=== PATIENT | female | born 1955 | race Caucasian/White ===

== ENCOUNTER 2020-05-10 11:21 | Inpatient (IN) ==
--- NOTE | 2020-04-20 11:15 | PAT Medication Instructions ---
Medication Instructions Date of Service April 20, 2020 Home Medications C,E,zinc,copper [id number] [Ocuvite Adult 50 Plus] 1 cap PO HS Vitamin D3 1 tab PO HS acetaminophen [Tylenol Arthritis Pain] 650 mg PO Q12H PRN albuterol sulfate 1 puff INHALATION QID PRN amlodipine 10 mg PO QAM atorvastatin [Lipitor] 20 mg PO HS cyclobenzaprine 10 mg PO TID PRN diphenhydramine HCl [Benadryl] 25 mg PO HS PRN epinephrine [EpiPen] 0.3 mg IM Q3H PRN hydrochlorothiazide 12.5 mg PO HS liraglutide [Victoza 2-Peter] 1.8 mg SUBCUT QAM lisinopril 40 mg PO QAM meloxicam 15 mg PO QAM metformin 500 mg PO BID morphine 15 mg PO BID multivitamin with minerals [Hair,Skin and Nails] 1 tab PO HS paroxetine HCl [Paxil] 20 mg PO QAM pregabalin [Lyrica] 50 mg PO BID Continue as directed epinephrine [EpiPen] 0.3 mg IM Q3H PRN (if needed) ASK your prescriber and surgeon meloxicam 15 mg PO QAM STOP taking 2 weeks before surgery (or as soon as possible if surgery is within 2 weeks) C,E,zinc,copper [id number] [Ocuvite Adult 50 Plus] 1 cap PO HS DO NOT take the morning of surgery cyclobenzaprine 10 mg PO TID PRN lisinopril 40 mg PO QAM metformin 500 mg PO BID Take morning of surgery With a small sip of water, OTHERWISE NOTHING TO EAT OR DRINK AFTER MIDNIGHT: acetaminophen [Tylenol Arthritis Pain] 650 mg PO Q12H PRN (okay to take up to 4 hours prior to surgery if needed) albuterol sulfate 1 puff INHALATION QID PRN (use if needed; please bring with you to hospital day of surgery if possible) amlodipine 10 mg PO QAM morphine 15 mg PO BID (okay to take up to 4 hours prior to surgery if needed) paroxetine HCl [Paxil] 20 mg PO QAM pregabalin [Lyrica] 50 mg PO BID Take evening before surgery Vitamin D3 1 tab PO HS acetaminophen [Tylenol Arthritis Pain] 650 mg PO Q12H PRN (if needed) albuterol sulfate 1 puff INHALATION QID PRN (if needed) atorvastatin [Lipitor] 20 mg PO HS cyclobenzaprine 10 mg PO TID PRN (if needed) diphenhydramine HCl [Benadryl] 25 mg PO HS PRN (if needed) hydrochlorothiazide 12.5 mg PO HS metformin 500 mg PO BID morphine 15 mg PO BID multivitamin with minerals [Hair,Skin and Nails] 1 tab PO HS pregabalin [Lyrica] 50 mg PO BID Other Notes If you have any questions please call us at [phone] or [phone] or [phone] or [phone]
--- NOTE | 2020-04-24 11:20 | Anesthesiology Consultation ---
Date of Service April 24, 2020 Assessment & Plan (1) Encounter for pre-operative examination: COVID Status: As of 04/24 assessment, patient denies travel to endemic area, known exposure/sick contacts, or symptoms of COVID19. Patient instructed that they and their household members must follow strict social distancing guidelines, wear a mask in public and avoid travel for 14 days prior to surgery. Preoperative COVID19 testing to be completed prior to surgery per surgeon's arrangements. Patient made aware to self-isolate as much as possible between COVID testing and surgery. Chart Review Chart Review: Acceptable Risk for Surgery (pending surgeon ordered PCP clearance 05/03) and Patient seen in Pre Admission Testing Teaching & Discussion Instructed NPO after midnight before surgery, except medications with 15 cc of water. Medication instructions provided according to the PAT guidelines. History Surgery Operation Date: 05/10/20 08:55 Proposed Procedures p Left Reverse Total Shoulder Arthroplasty - Tad Hernandez MD Height/Weight Height: 5 ft 3.5 in Weight: 107.8 kg Allergies Allergy/AdvReac Type Severity Reaction Status Date / Time bee venom protein (honey bee) Allergy Severe THROAT Verified 04/24/20 14:22 SWELLING,FACE SWELLS adhesive Allergy Unknown TRANSFER Verified 04/24/20 14:22 TAPE = TORE SKIN shark liver oil Allergy Unknown RASH Verified 04/24/20 14:22 Yeast Allergy Unknown RASH Verified 04/24/20 14:22 erythromycin base AdvReac Mild GI upset Verified 04/24/20 14:22 oxycodone AdvReac Mild lower Verified 04/24/20 14:22 blood pressure, feels weird Phenylmercuric Nitrate Allergy Unknown RASH Uncoded 04/24/20 14:22 Medications Home Medications Medication Instructions Recorded Confirmed Last Taken C,E,zinc,copper [id number] 1 cap PO HS 04/18/20 04/18/20 Unknown [Ocuvite Adult 50 Plus] Vitamin D3 1 tab PO HS 04/18/20 04/18/20 Unknown acetaminophen [Tylenol Arthritis 650 mg PO Q12H PRN 04/18/20 04/18/20 Unknown Pain] albuterol sulfate 1 puff INHALATION QID PRN 04/18/20 04/18/20 Unknown amlodipine 10 mg PO QAM 04/18/20 04/18/20 Unknown atorvastatin [Lipitor] 20 mg PO HS 04/18/20 04/18/20 Unknown cyclobenzaprine 10 mg PO TID PRN 04/18/20 04/18/20 Unknown diphenhydramine HCl [Benadryl] 25 mg PO HS PRN 04/18/20 04/18/20 Unknown epinephrine [EpiPen] 0.3 mg IM Q3H PRN 04/18/20 04/18/20 Unknown hydrochlorothiazide 12.5 mg PO HS 04/18/20 04/18/20 Unknown liraglutide [Victoza 2-Peter] 1.8 mg SUBCUT QAM 04/18/20 04/18/20 Unknown lisinopril 40 mg PO QAM 04/18/20 04/18/20 Unknown meloxicam 15 mg PO QAM 04/18/20 04/18/20 Unknown metformin 500 mg PO BID 04/18/20 04/18/20 Unknown morphine 15 mg PO BID 04/18/20 04/18/20 Unknown multivitamin with minerals 1 tab PO HS 04/18/20 04/18/20 Unknown [Hair,Skin and Nails] paroxetine HCl [Paxil] 20 mg PO QAM 04/18/20 04/18/20 Unknown pregabalin [Lyrica] 50 mg PO BID 04/18/20 04/18/20 Unknown Past Medical History Medical History Anxiety Asthma rarely uses PRN INH, ~ 2x per year at most Cardiac murmur Not noted on exam at PAT; pt reports has never had an echo. Cataracts, both eyes Degenerative disc disease Depression DM type 2 (diabetes mellitus, type 2) GERD (gastroesophageal reflux disease) Hyperlipidemia Hypertension Irregular heart beat "Skips a beat." NSR on EKG at PAT. Morbid obesity Osteoarthritis Exercise / Class Metabolic Activity II 4-5 Yardwork/Stairs/Walk up hill (Denies CP or SOB with 1 FOS, ges 'one at a time') Past Family History Family History Sister Diabetes Other No family history of adverse response to anesthesia Past Surgical History Surgical History History of appendectomy History of colonoscopy History of D&C History of left hip replacement History of left knee replacement History of lumbar spinal fusion History of removal of cyst BL breast; benign History of right hip replacement History of tooth extraction History of total abdominal hysterectomy and bilateral salpingo-oophorectomy Past Anesthesia History No Hx of Anesthesia Complications and No Family Hx of Anesthesia Complications History of PONV No Hx of PONV and No Hx of Motion Sickness Social History Smoking Status: Former smoker Do You Dip or Chew Tobacco: No Smoking End Date: quit at age 27 Hx Alcohol Use: No Hx Substance Use: No substance use type: does not use Review of Systems Pt denies any recent chest pain, shortness of breath, cough, fever, URI, or uncontrolled acid reflux. +rare palpitations Physical Exam Vital Signs BP: 135/74 P: 86bpm SPO2: 93% RA T: 98.3 F R: 16 Constitutional + obese ENMT Mouth: no dental restorations, no chipped teeth and no loose teeth Thyromental Distance: > or= 3.5 Finger Breadths (4) Mallampati Class: I Neck normal visual inspection; neck extension not limited Respiratory normal respiratory effort Auscultation: lungs clear to auscultation bilaterally Cardiovascular Rate/Rhythm: regular rate and regular rhythm Heart Sounds: no murmur Extremities: no edema Testing Laboratory Results 04/24/20 11:35 04/24/20 11:35 Hemoglobin A1c 7.1 % (4.5-5.6) H 04/24/20 11:35 Urine Color Yellow 04/24/20 11:35 Urine Appearance Clear (Clear) 04/24/20 11:35 Urine pH 5.0 (4.5-7.5) 04/24/20 11:35 Ur Specific [place] 1.028 (1.000-1.030) 04/24/20 11:35 Urine Protein Negative (Negative) 04/24/20 11:35 Urine Glucose (UA) Negative (Negative) 04/24/20 11:35 Urine Ketones Trace (Negative) H 04/24/20 11:35 Urine Nitrite Negative (Negative) 04/24/20 11:35 Ur Leukocyte Esterase 1+ (Negative) H 04/24/20 11:35 Urine WBC (Auto) 5-10 /hpf (0-5) H 04/24/20 11:35 Urine RBC (Auto) 5-10 /hpf (0-4) H 04/24/20 11:35 U Hyaline Cast (Auto) 1-5 /lpf (0-5) 04/24/20 11:35 U Epithel Cells (Auto) 10-20 /lpf (0-5) H 04/24/20 11:35 Urine Bacteria (Auto) Negative (Negative) 04/24/20 11:35 Blood Type O Negative 04/24/20 11:35 Antibody Screen NEGATIVE 04/24/20 11:35 Electrocardiogram Date: 04/24/20 Findings: + NSR @ (82bpm) Chest X-Ray Date: 04/24/20 Findings: + NAD
--- NOTE | 2020-04-24 12:25 | XRay Report ---
XR chest Pre-admission PA/Lat CLINICAL HISTORY: Preoperative chest COMPARISON STUDY: 05/16/2013 FINDINGS: The cardiac and mediastinal contours are normal. There is no evidence of focal pulmonary co nsolidation. There is no evidence of failure. No pleural effusions are visualized.[There are small ar eas of linear atelectasis/scarring within the right midlung zone and left lower lung zone. IMPRESSION: No active disease in the chest. ACT 112: Negative or not required by law. Electronically signed by: Tobias Henson M.D. 04/24/2020 12:24 PM
[2020-04-24 12:27] LABS: Basophils # (auto) 0.02 K/uL (0-0.2); Basophils % (auto) 0.2 %; Eosinophils # (auto) 0.21 K/uL (0-0.5); Eosinophils % (auto) 2.5 %; Hematocrit (blood only) 37.3 % (37-47); Hemoglobin 12.2 g/dL (12.0-16.0); Immature Granulocytes # (auto) 0.04 K/uL (0.00-0.02); Immature Granulocytes % (auto) 0.5 %; Lymphocytes # (auto) 2.31 K/uL (1.2-3.4); Lymphocytes % (auto) 27.9 %; Mean Corpuscular Hgb Conc 32.7 g/dL (32-36); Mean Corpuscular Volume 85.7 fL (80-100); Mean Platelet Volume 10.1 fL (7.4-10.4); Monocytes # (auto) 0.75 K/uL (0.11-0.59); Neutrophils # (auto) 4.96 K/uL (1.4-6.5); Neutrophils % (auto) 59.9 %; Platelet Count 373 K/uL (130-400); RDW Coefficient of Variation 13.3 % (11.5-14.5); RDW Standard Deviation 41.7 fL (36.4-46.3); Red Blood Count 4.35 M/uL (4.2-5.4); White Blood Count 8.29 K/uL (4.8-10.8)
[2020-04-24 12:29] LABS: Estimated Average Glucose 157 mg/dl; Hemoglobin A1C 7.1 % (4.5-5.6)
[2020-04-24 12:31] LABS: Appearance Urine Clear (Clear); Bacteria Urine Automated Negative (Negative); Bilirubin Urine Negative (Negative); Blood Urine Negative (Negative); Color Urine Yellow; Glucose Urine UA Negative (Negative); Ketones Urine Trace (Negative); Leukocyte Esterase Urine 1+ (Negative); Nitrite Urine Negative (Negative); Protein Urine Negative (Negative); Specific Gravity Urine 1.028 (1.000-1.030); Urobilinogen Urine Negative (Negative)
[2020-04-24 12:50] LABS: Albumin Level 3.2 gm/dl (3.4-5.0); BUN Creatinine Ratio 26.1 (10-20); Calcium 9.1 mg/dl (8.5-10.1); Creatinine Clr Calc Pharmacy 85.4 ml/min; Est GFR (African American) 92.5; Est GFR (Non-African American) 79.8; Potassium 4.3 mmol/L (3.5-5.1)
--- NOTE | 2020-04-26 08:37 | Electrocardiogram Report ---
Test Reason : Blood Pressure : / mmHG Vent. Rate : 082 BPM Atrial Rate : 082 BPM P-R Int : 164 ms QRS Dur : 082 ms QT Int : 360 ms P-R-T Axes : 064 064 068 degrees QTc Int : 420 ms Normal sinus rhythm Normal ECG When compared with ECG of 28-FEB-2015 16:24, No significant change was found Confirmed by Pacheco Reyez ([id number]) on 04/26/2020 8:37:17 AM Referred By: Tad Hernandez Confirmed By:Pacheco Reyez
--- NOTE | 2020-05-09 20:13 | History and Physical Report ---
DATE OF ADMISSION: 05/10/2020 CHIEF COMPLAINT: Chronic left shoulder pain and weakness. HISTORY OF PRESENT ILLNESS: This is a 65-year-old female patient of Dr. Hernandez'juliana complaining of chronic left shoulder pain and weakness, longstanding, now progressively getting worse. The patient failed conservative treatment and has elected to proceed with a left reversed total shoulder arthroplasty. MRI and x-rays have confirmed a rotator cuff insufficiency. PAST MEDICAL HISTORY: Heart murmur, hypertension, hypercholesterolemia, palpitations, asthma, diabetes mellitus, osteoarthritis, acid reflux, obesity. SOCIAL HISTORY: Nonsmoker, nondrinker. FAMILY HISTORY: Noncontributory. REVIEW OF SYSTEMS: Chronic left shoulder pain and weakness. Otherwise, denies any shortness of breath, chest pain, nausea, vomiting or any other joint complaints. PAST SURGICAL HISTORY: Appendectomy, hysterectomy, back surgery, bilateral hip surgery and knee surgery. MEDICATIONS: 1. Victoza 2-Peter subQ daily. 2. Cyclobenzaprine 10 mg twice daily. 3. Atorvastatin 20 mg daily. 4. Lisinopril 40 mg daily. 5. Amlodipine 10 mg daily. 6. Vitamin D3 25 mcg daily. 7. Paroxetine 20 mg daily. 8. Morphine extended release 15 mg tablets every 12 hours as needed. 9. Metformin 500 mg twice daily. 10. Meloxicam 15 mg daily. 11. Lyrica 50 mg twice daily. 12. Hydrochlorothiazide 12.5 mg daily. 13. Ocuvite Adult 50+ 250/5 mg 1 daily. 14. Hair, skin and nail tablets [id number] daily. 15. Tylenol Arthritis as needed. 16. Benadryl 25 mg as needed. ALLERGIES: ADHESIVE, BEE STINGS, OXYCODONE. PHYSICAL EXAMINATION: GENERAL: Well-developed, well-nourished 65-year-old female in no acute distress. She is alert and oriented x3 and pleasant. HEENT: Normocephalic, atraumatic. Extraocular motions are intact. Pupils are equal and reactive to light. HEART: Irregularly irregular rate and rhythm. LUNGS: Clear. ABDOMEN: Soft, nontender, bowel sounds present. EXTREMITIES: Left upper extremity; limited range of motion of 90 degrees of forward elevation actively, passively to 170 with pain and crepitation. She has 2/5 strength globally, specifically with rotator cuff strengthening. Positive impingement. Neurologically and neurovascularly, she is intact in her left upper extremity. DIAGNOSES: Left shoulder rotator cuff arthropathy, heart murmur, hypertension, hypercholesterolemia, palpitations, asthma, diabetes mellitus, osteoarthritis, acid reflux, obesity. PLAN: The patient was advised of her diagnosis. Indications, risks, benefits, postop course have all been reviewed. The patient wished to proceed with a left reverse total shoulder arthroplasty. Necessary consent forms, preoperative testing and clearances will be obtained.
[~2020-05-10 11:21] MED LIST: ACETAMINOPHEN 500 MG TAB PO SCH; CEFAZOLIN 2000MG 2,000 MG/15 ML SYR IV SCH; CeleBREX 200 MG CAP PO SCH; DEXAMETHASONE SOD INJ 4 MG/ML VIAL ONE; FAMOTIDINE 20 MG TAB PO SCH; GABAPENTIN 300 MG CAP PO SCH; GLYCOPYRROLATE 0.2 MG/ML VIAL ONE; LARYING-O-JET KIT (LTA) ONE; LIDOCAINE HCL 2% 2 ML VIAL/AMP(20MG/ML) INFIL ONE; LR 15ML/HR IV SCH; METOCLOPRAMIDE HCL 10 MG TABLET PO SCH; MIDAZOLAM HCL 1 MG/ML 2ML VIAL ONE; NEOSTIGMINE METHYLSULFATE 5 MG/5 ML SYR ONE; ONDANSETRON INJ 2 MG/ML 2 ML VIAL ONE; PHENYLEPHRINE 100MCG/ML 5ML SYR ONE; PROPOFOL IV EMULSION 10 MG/ML 20 ML VIAL IV ONE; ROCURONIUM BROMIDE 10 MG/ML 5 ML VIAL IV ONE; ROPIVACAINE 0.5% 5 MG/ML 30 ML VIAL ONE; ePHEDrine sulfate 50 MG/ML SYR ONE; fentaNYL citrate 100 MCG/2 ML VIAL ONE
[2020-05-10] MEDS ORDERED: BACITRACIN INJ 50,000 UNIT VIAL ONE (11:44)
[2020-05-10] MEDS ORDERED: HYDROmorphone INJ 2 MG/ML SYR/VIAL IV PRN (13:01)
[2020-05-10] MEDS ORDERED: METOCLOPRAMIDE HCL INJ 5 MG/ML 2 ML VIAL IV PRN (13:01)
[2020-05-10] MEDS ORDERED: fentaNYL citrate 100 MCG/2 ML VIAL IV PRN (13:01)
[2020-05-10] MEDS ORDERED: ONDANSETRON INJ 2 MG/ML 2 ML VIAL IV PRN ×2 (13:01→17:47)
[2020-05-10] MEDS ORDERED: ATROPINE SULFATE 0.1 MG/ML 10ML SYR IV PRN (13:01)
[2020-05-10] MEDS ORDERED: ePHEDrine sulfate 50 MG/ML AMP IV PRN (13:01)
[2020-05-10] MEDS ORDERED: PROMETHAZINE HCL 12.5 MG in SODIUM CHLORIDE 0.9% 50 ML IV PRN (13:01)
--- NOTE | 2020-05-10 13:27 | History & Physical Bridge Note ---
Date of Service May 10, 2020 History & Physical Bridge Note I have examined the patient, reviewed the History & Physical and in the interval since the performance of the History & Physical I have noted the following changes of clinical significance: no changes noted
[2020-05-10] MEDS ORDERED: LIDOCAINE HCL 2% MPF (LOCAL) 5 ML VIAL INFIL ONE (13:31)
[2020-05-10] MEDS ORDERED: LIDOCAINE HCL 2% 2 ML VIAL/AMP(20MG/ML) INFIL ONE (13:32)
[2020-05-10] MEDS ORDERED: PHENYLEPHRINE HCL 10 MG/ML VIAL ONE (14:20)
[2020-05-10] MEDS ORDERED: ROCURONIUM BROMIDE 10 MG/ML 5 ML VIAL IV ONE (15:42)
--- NOTE | 2020-05-10 16:24 | Operative Report ---
Post Operative Report Pre & Post Diagnosis Operation Date: 05/10/20 14:05 Pre-Op Diagnosis: Left Shoulder Rotator Cuff Arthropathy, end-stage glenohumeral osteoarthritis with bone loss glenoid, obesity BMI 40.8 Post-Op Diagnosis: Left Shoulder end-stage glenohumeral arthritis with bone loss glenoid, rotator cuff tendinopathy with intact rotator cuff, marked biceps tendinopathy, obesity BMI 40.8. I identified the patient and participated in the time-out.: Yes Procedure Operation Date: 05/10/20 14:05 Actual Procedures Left reversed total Shoulder Arthroplasty, Biceps Tenodesis(Left) - Tad Hernandez MD Surgeon Tad Hernandez MD Shirt Finisher Ernesto MORRIS Estimated Blood Loss 50 Findings Consistent with Post-Op Diagnosis Specimens Humeral head cut Drains 2 Hemovac Anesthesia Type General Regional Complications none Disposition Accompanied Patient To Recovery: No Disposition: Recovery Room Indications 65-year-old female with pain loss of motion decreased rotator cuff function left shoulder. Radiographs demonstrate severe osteoarthritis glenohumeral joint with superior bone loss glenoid back to the base of the coracoid concerning for chr onic rotator cuff disease with proximal migration and superior glenoid wear. Patient has very limited active use of her shoulder only 20 degrees of forward elevation and abduction but has good passive range of motion. Radiographs demonstrate also large inferior humeral osteophytes advanced arthritic changes throughout the glenohumeral joint. Description of Procedure The patient was taken to the operating room and anesthetized under regional block and general anesthetic. The patient was positioned on the operating table in a 30 beachchair position with a towel roll under the medial border of the left scapula. The arm was draped free to be able to manipulate the shoulder as needed. The left upper extremity was prepped and draped in usual sterile fashion. Exam demonstrated 160 degrees forward elevation 90 degrees of abduction 60 degrees external rotation with [id number] crepitation. She was obese in general an obese arm but in the area of the surgical field only moderate obesity. Was some generalized increased time with positioning due to her obesity.. An anterior deltopectoral approach was performed. A longitudinal incision was made in the deltopectoral interval. The skin was incised sharply. Subcutaneous flaps were elevated off the fascia. The cephalic vein was dissected out and retracted lateral with the deltoid. The clavipectoral fascia was divided at the lateral margin of the conjoined tendon and extended up to the CA ligament. The following findings were noted: The rotator cuff is intact with some thinning and tendinopathy of the superior cuff but no evidence of any full-thickness rotator cuff tear. The upper centimeter of the pectoralis was released for inferior exposure. The biceps tendon findings demonstrated significant biceps tenosynovitis with a large fluid collection and loose bodies in the biceps tendon sheath which appeared to be cartilaginous. Intra-articular biceps had marked fraying and tendinopathy.. the biceps tendon was tenodesed to the pectoralis tendon with #2 FiberWire. The proximal biceps was resected. The subscapularis tendon was taken down off the lesser tuberosity using a subperiosteal dissection. A #1 Vicryl traction suture was placed into the free end of the subscapularis tendon and capsule. The subscapular muscle fibers were split longitudinally at the level of the circumflex vessels. The circumflex vessels were identified and tied off with silk ties and divided laterally. A Kitner elevator was used to free up the inferior fibers of the subscapularis off of the capsule. The axillary nerve was identified with a tug test and protected with a blunt David retractor between the nerve and the capsule. The subscapularis tendon was then taken down off of the lesser tuberosity subperiosteally and subperiosteal dissection was performed along the neck of the humerus as the arm is gradually actually rotated exposing the humeral head. Humeral head had exposed bone on the upper half of the humerus and in. There there was very large inferior humeral osteophytes from anterior to posterior. Retractors were readjusted and the inferior osteophytes were all resected using an artist chisel. A Lilly elevator was used to assist in releasing the capsule of the neck of the humerus. The capsule was divided with Gomez scissors down to the glenoid released off the anterior glenoid and the rotator interval was released to meet the capsular release and a 360 release of the subscapularis was accomplished. A Fukuda retractor was placed into the joint retracting the humeral head posterior. Glenoid findings demonstrated exposed bone entire glenoid with superior anterior wear pattern down to the base of the coracoid flush with the coracoid base and superior to that position and slightly posterior to that in the superiormost portion there was erosion even medial to the base of the coracoid. There was inflamed chronic synovial tissue on the surface of the glenoid that almost appeared to be consistent with rheumatoid arthritis.. The inflamed synovium tissue, glenoid labrum and biceps tendon were resected. an anterior-inferior and posterior inferior capsular release were performed with electrocautery and a Lilly elevator on bone with the axillary nerve protected inferiorly by the retractor. Attention was then taken to the humeral preparation. The cutting guide was placed into the humeral head. It was positioned at 20 of retroversion. Oscillating saw was used to resect the humeral head giving the cut above the level of the posterior rotator cuff insertion site. The humerus was then prepared for the stem. I used the ascend flex stem from [employer]. The sizing broaches were used followed by trial broaches up to a size 3B long which had the appropriate fit and fill. The appropriate sized cut protector was placed. The humerus was then retracted posterior to the glenoid. The glenoid was sized for a 25 baseplate based on preoperative CT guide blueprint templating with custom guide fabrication.. The guide for the baseplate was positioned with the wedge of the full wedge component being aimed at the base of the coracoid anterior superior and the central drill guide wire was placed. This placed the baseplate prosthesis right at the bottom edge of the glenoid in position. The cannulated reamer for the 15 degree perform full wedge 25 mm baseplate was used. The reamer for the central boss was used. The depth gauge was used to measure for the central screw. The 25 mm full wedge 15 degree perform glenoid baseplate was screwed into position. The base plate was transfixed with superior compression screw and anterior posterior and inferior locking screws and with stable fixation.. After irrigation the 39 mm symmetrical glenoid sphere was impacted onto the baseplate and the screw was tightened. Attention was taken back to the humerus. The cut protector was removed and the +0 low offset humeral tray trial was assembled to the trial stem rotated appropriately to get bony coverage and then screwed in position. A trial reduction was performed. A +6,39 humeral trial insert demonstrated good stability and no shuck. The trials were removed. 3 drill holes are made into the harder bone in the bicipital groove area and 3 #5 FiberWire sutures were placed transosseously. The canal was irrigated with antibiotic solution with bacitracin. The final component was assembled. The final component was [employer] ascend flex PTC 3B long stem attached to +0 low offset humeral tray and a 39 mm +6 polyethylene reversed insert. This was then impacted into the humerus with a tight press-fit. It was reduced to the glenoid sphere. Stability was verified. Subscapularis was repaired with the #5 FiberWire sutures using Alok-Jose suture technique. Lateral row soft tissue repair was performed with #2 FiberWire [id number] sutures. The pectoralis was repaired with #2 FiberWire [id number] sutures reinforcing the biceps tendon tenodesis. The arm was taken through a range of motion which demonstrated 150 degrees forward elevation 130 degrees abduction X rotation to 45 degrees without any tension on subscap repair. The implant was stable through the range of motion tested. The wound was copiously irrigated. 2 Hemovac drains were placed. The deltopectoral interval was closed with [id number] #1 Vicryl sutures. The subcutaneous tissues were closed with 2-0 Vicryl sutures. The skin was closed with gonzalo. Sterile dressings were applied and a shoulder immobilizer. Ernesto MORRIS my physician resident assistant cna assisted in the procedure to the entire procedure including patient positioning arm positioning prepping and draping soft tissue retraction instrument management suture management and performed the subcutaneous and skin closure and will participate in the postoperative care of the patient. I attest to the content of the Intraoperative Record and any orders documented therein. Any exceptions are noted below.
--- NOTE | 2020-05-10 17:18 | XRay Report ---
XR shoulder LT min 2V routine CLINICAL HISTORY: Post shoulder surgery COMPARISON STUDY: None. FINDINGS: Status post reverse left total shoulder arthroplasty. The hardware is intact. No fracture o r dislocation. Skin gonzalo and surgical drains are in place. IMPRESSION: Status post reverse left total shoulder arthroplasty. No evidence for hardware complicat ion. ACT 112: Negative or not required by law. Electronically signed by: Daren Barrientos M.D. 05/10/2020 5:17 PM
--- NOTE | 2020-05-10 17:28 | Anesthesiology Progress Note ---
Date of Service May 10, 2020 Anesthesia Post Procedure Vital Signs Vital Signs: Temp Pulse Pulse Resp BP Pulse Ox 05/10/20 17:15 36.7 C 88 20 131/69 95 05/10/20 17:05 85 18 118/77 95 05/10/20 16:55 87 13 132/72 94 05/10/20 16:45 90 19 145/68 H 96 05/10/20 16:35 36.3 C L 95 H 18 152/76 H 94 05/10/20 11:52 36.7 C 94 H 20 143/83 H 95 Pain Intensity Left Shoulder: Pain Intensity: 0 Transfer of Care Handoff Completed per policy Notes Mental Status: alert / awake / arousable Patient Amnestic to Procedure: Yes Nausea / Vomiting: adequately controlled Pain: adequately controlled Airway Patency, RR, SpO2: stable & adequate BP & HR: stable & adequate Hydration State: stable & adequate Anesthetic Complications: no major complications apparent
[2020-05-10] MEDS ORDERED: MAGNESIUM HYDROXIDE SUSP 30 ML UDC PO PRN (17:47)
[2020-05-10] MEDS ORDERED: SODIUM CHLORIDE 0.9% 1000ML 1,000 ML IV SCH (17:47)
[2020-05-10] MEDS ORDERED: ALBUTEROL HFA 8 GM INHALER INH PRN (17:47)
[2020-05-10] MEDS ORDERED: bisacodyL 10 MG SUPP PR PRN (17:47)
[2020-05-10] MEDS ORDERED: NALOXONE HCL 0.4 MG/1 ML VIAL/CARP IV PRN (17:47)
[2020-05-10] MEDS ORDERED: PHARMACY GLYCEMIC MGMT CONSULT PRN (18:03)
--- NOTE | 2020-05-10 18:11 | Hospitalist Consultation ---
Date of Consultation May 10, 2020 Assessment & Plan (1) Status post replacement of left shoulder joint: - Pain management, bowel regimen and DVT ppx per the primary team - PT/OT consults, pt is planning on outpatient therapy - Follow am CBC to monitor for acute blood loss (2) Hypertension: - Cont amlodipine 10 mg qam, hctz 12.5 mg HS, lisinopril 40 mg daily (3) Hyperlipidemia: - Cont atorvastatin 20 mg HS (4) DM type 2 (diabetes mellitus, type 2): - ISS with accuchecks achs, metformin 500 mg BID, Victoza 1.8 mg subq - A1C = 7.1 on 04/24/20 (5) GERD (gastroesophageal reflux disease): - controlled, not on ppi/h2 dejuan (6) Morbid obesity: - chronic, bmi of 40.8, has lost 150 lbs in anticipation of this surgery and plans to lose more in the next few months. - heart health diet ordered, continue to encourage diet and weight loss (7) Anxiety: (8) Depression: - Cont paxil 20 mg qam (9) Asthma: - Chronic stable (10) DVT prophylaxis: -asa 81 mg BID CODE: FULL Dispo: From home, likely to remain in the hospital x 1-2 days Thank you for involving us in the care of Mrs. Gonzalez. Please do not hesitate to call with questions or concerns. At this time medicine service will sign off. Supervising Physician Co-Signing Physician Notes Attending Attestation: Pt seen/examined, chart reviewed, care plan d/w ARTURO Chavez. I agree w/ the padilla components of her documentation. 65yo female with HTN & T2DM - obesity with recent significant intentional weight loss - s/p left shoulder replacement today. Saw patient on ortho floor - resting comfortably. No cp,dyspnea,abd pain,or nausea. Eating fine. Pain - mild. PMH, PSH, allergies, meds, sochx, famhx - reviewed VSS gen - NAD; sitting in chair neck - no JVD heart - RRR, s1 s2 lungs - CTA b/l abd - soft NT ext - no ankle edema musculo - left shoulder dressings in place; sling in place A/P: 1. s/p left total shoulder replacement 2. HTN - cont home meds; BMP am to ensure stability of creatinine 3. T2DM - defer management to pharmacy; holding metformin 4. DVT proph - per ortho Shen eRnee MD History of Present Illness Reason for Consultation: Medical management Requesting Physician: Dr. Hernandez Attending Physician: Tad Hernandez MD History of Present Illness This is a 65 yo F with PMHx of HTN, HLD, DM II, GERD, morbid obesity, osteoarthritis, DDD, cataracts, asthma, anxiety, who presented for elective Left reverse shoulder arthroplasty by Dr. Hernandez on 05/10/2020. The pt reports doing well currently. She is eating dinner without difficulty. Her left arm is completely numb, but is able to move her fingers now. No flatus or urination s/p surgery. In preparation for surgery she lost 150 lbs in the past year, and did it through eating small portions and limiting carb intake. She is hopeful that she can lose a bit more, and then have skin surgically removed as it rubs and areas under her arms and pannis rub, which is irritating, and has to use creams to help prevent breakdown. Pt lives at home with her who will be able to help her with PT/OT as an outpatient. She speaks highly of her during our meeting and ensure me that he has taken very good care of her, for the past 44 years. Allergies Allergy/AdvReac Type Severity Reaction Status Date / Time bee venom protein (honey bee) Allergy Severe THROAT Verified 05/10/20 11:41 SWELLING,FACE SWELLS adhesive Allergy Unknown TRANSFER Verified 05/10/20 11:41 TAPE = TORE SKIN shark liver oil Allergy Unknown RASH Verified 05/10/20 11:41 Yeast Allergy Unknown RASH Verified 05/10/20 11:41 erythromycin base AdvReac Mild GI upset Verified 05/10/20 11:41 oxycodone AdvReac Mild lower Verified 05/10/20 11:41 blood pressure, feels weird Phenylmercuric Nitrate Allergy Unknown RASH Uncoded 05/10/20 11:41 Home Medications Home Medications Medication Instructions Recorded Confirmed Type C,E,zinc,copper [id number] 1 cap PO HS 04/18/20 05/10/20 History [Ocuvite Adult 50 Plus] Vitamin D3 1 tab PO HS 04/18/20 05/10/20 History acetaminophen [Tylenol Arthritis 650 mg PO Q12H PRN 04/18/20 05/10/20 History Pain] albuterol sulfate 1 puff INHALATION QID PRN 04/18/20 05/10/20 History amlodipine 10 mg PO QAM 04/18/20 05/10/20 History atorvastatin [Lipitor] 20 mg PO HS 04/18/20 05/10/20 History cyclobenzaprine 10 mg PO TID PRN 04/18/20 05/10/20 History diphenhydramine HCl [Benadryl] 25 mg PO HS PRN 04/18/20 05/10/20 History epinephrine [EpiPen] 0.3 mg IM Q3H PRN 04/18/20 05/10/20 History hydrochlorothiazide 12.5 mg PO HS 04/18/20 05/10/20 History liraglutide [Victoza 2-Peter] 1.8 mg SUBCUT QAM 04/18/20 05/10/20 History lisinopril 40 mg PO QAM 04/18/20 05/10/20 History meloxicam 15 mg PO QAM 04/18/20 05/10/20 History metformin 500 mg PO BID 04/18/20 05/10/20 History morphine 15 mg PO BID 04/18/20 05/10/20 History multivitamin with minerals 1 tab PO HS 04/18/20 05/10/20 History [Hair,Skin and Nails] paroxetine HCl [Paxil] 20 mg PO QAM 04/18/20 05/10/20 History pregabalin [Lyrica] 50 mg PO BID 04/18/20 05/10/20 History Patient History Medical History (Updated 05/10/20 @ 18:08 by Che Chavez PA-C) Anxiety Asthma rarely uses PRN INH, ~ 2x per year at most Cardiac murmur Not noted on exam at PAT; pt reports has never had an echo. Cataracts, both eyes Degenerative disc disease Depression DM type 2 (diabetes mellitus, type 2) GERD (gastroesophageal reflux disease) Hyperlipidemia Hypertension Irregular heart beat "Skips a beat." NSR on EKG at PAT. Morbid obesity Osteoarthritis Surgical History (Updated 05/10/20 @ 18:09 by Che Chavez PA-C) History of appendectomy History of colonoscopy History of D&C History of left hip replacement History of left knee replacement History of lumbar spinal fusion History of removal of cyst BL breast; benign History of right hip replacement History of tooth extraction History of total abdominal hysterectomy and bilateral salpingo-oophorectomy Family History Sister Diabetes Other No family history of adverse response to anesthesia Social History (System 04/24/20 @ 14:22 by Giovana Alcazar) Smoking End Date: quit at age 27; Do You Dip or Chew Tobacco: No; Tobacco Cessation Education Requested by Patient: No 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 Safety Concerns: Feels Safe At This Time Review of Systems Review of Systems: Constitutional: No fever, sweats or chills Eyes: No diplopia, no worsening or blurred vision ENT: normal hearing, no trouble swallowing Respiratory: No cough, sputum, dyspnea at rest or on exertion Cardiovascular: No chest pain, tightness or palpitations Abdomen: No pain, nausea, vomiting, diarrhea or constipation Musculoskeletal: No joint pain, calf pain, swelling Neurologic: No weakness, numbness/tingling, or balance problems Psychiatric: No anxiety or depression Skin: No rash or itch Physical Exam Physical Exam: General: awake, alert, no apparent distress, obese with BMI of 40.1 Head: Normocephalic, atraumatic ENT: PERRL, EOMI, no pharyngeal exudate, mucous membranes moist Chest: Clear to auscultation, on room air, no adventitious breath sounds Cardiac: Regular rate and rhythm, no murmur, no JVD, normal peripheral pulses, good capillary refill Abdominal: NABS x 4 quadrants, soft, nontender to palpation, no rebound, guarding or tenderness Extremities: + Left shoulder in sling, hemovac, icepack, otherwise normal inspection, no peripheral edema or erythema, calfs nontender to palpation Psych: Normal mood and affect Neuro: AAO x 3, strength intact bilaterally and related 5/5, no motor deficits, speech is clear, no peripheral sensory deficits Results & Data Results & Data ([facility]) Vital Signs (Past 12 Hours) Vital Signs Temp Pulse Pulse Resp BP Pulse Ox 05/10/20 17:15 36.7 C 88 20 131/69 95 05/10/20 17:05 85 18 118/77 95 05/10/20 16:55 87 13 132/72 94 05/10/20 16:45 90 19 145/68 H 96 05/10/20 16:35 36.3 C L 95 H 18 152/76 H 94 05/10/20 11:52 36.7 C 94 H 20 143/83 H 95 PG Care Time/CCT Total # of Minutes Spent Total Time Spent with Patient: Total time spent is greater than 50% in coordination of care (as documented) at patient's floor/unit and/or counseling patient: Coding Level of Care Code 42324 Inpt Consult Level 3 Diagnoses Status post replacement of left shoulder joint Z96.612 Hypertension I10 Hyperlipidemia E78.5 DM type 2 (diabetes mellitus, type 2) E11.9 GERD (gastroesophageal reflux disease) K21.9 Morbid obesity E66.01 Anxiety F41.9 Depression F32.9 Asthma J45.909 DVT prophylaxis Z29.9
[2020-05-10] MEDS ORDERED: GLUCOSE 40% GEL 15 GM TUBE PO PRN (18:30)
[2020-05-10] MEDS ORDERED: NovoLIN-N (NPH) PER UNIT CHARGE SQ ONE (18:30)
[2020-05-10] MEDS ORDERED: DEXTROSE 50% 50 ML SYRINGE IV PRN (18:30)
[2020-05-10] MEDS ORDERED: GLUCOSE 10 TABS/TUBE PO PRN (18:30)
[2020-05-10] MEDS ORDERED: GLUCAGON FOR INJ 1 MG VIAL SQ PRN (18:30)
[2020-05-10] MEDS ORDERED: CARBOHYDRATES FOR HYPOGLYCEMIA PO PRN (18:30)
[2020-05-10] MEDS: INSULIN ASPART 100 UNITS/ML 3 ML PEN SC SCH ×2 (18:50→21:02)
[2020-05-10] MEDS: ASPIRIN 81 MG ECTAB PO SCH (20:54)
[2020-05-10] MEDS: SENNA 8.6 MG TAB PO SCH (20:54)
[2020-05-10] MEDS: DOCUSATE SODIUM 100 MG CAP PO SCH (20:54)
[2020-05-10] MEDS: hydroCHLOROthiazide 25 MG TAB PO SCH (20:54)
[2020-05-10] MEDS: ATORVASTATIN 20 MG TAB PO SCH (20:55)
[2020-05-10] MEDS: MoRPHine SULFATE CR 15 MG TABCR PO SCH (20:58)
[2020-05-10] MEDS: PREGABALIN 50 MG CAP PO SCH (20:58)
[2020-05-10] MEDS ORDERED: METFORMIN HCL 500 MG TAB PO SCH (21:00)
[2020-05-10] MEDS: CEFAZOLIN 2000MG 2,000 MG/15 ML SYR IV SCH (22:04)
[2020-05-11] MEDS: INSULIN ASPART 100 UNITS/ML 3 ML PEN SC SCH ×6 (00:33→20:53)
[2020-05-11] MEDS: HYDROCODONE/ACETAMOPHEN 5/325MG TAB PO PRN ×5 (01:45→23:17)
[2020-05-11] MEDS: CEFAZOLIN 2000MG 2,000 MG/15 ML SYR IV SCH (05:42)
[2020-05-11 06:04] LABS: Eosinophils # (auto) 0.01 K/uL (0-0.5); Eosinophils % (auto) 0.1 %; Hematocrit (blood only) 34.8 % (37-47); Hemoglobin 11.5 g/dL (12.0-16.0); Immature Granulocytes # (auto) 0.05 K/uL (0.00-0.02); Immature Granulocytes % (auto) 0.5 %; Lymphocytes # (auto) 1.38 K/uL (1.2-3.4); Lymphocytes % (auto) 12.9 %; Mean Corpuscular Volume 84.9 fL (80-100); Mean Platelet Volume 9.7 fL (7.4-10.4); Monocytes # (auto) 1.05 K/uL (0.11-0.59); Monocytes % (auto) 9.8 %; Neutrophils # (auto) 8.18 K/uL (1.4-6.5); Neutrophils % (auto) 76.7 %; Platelet Count 320 K/uL (130-400); RDW Coefficient of Variation 13.4 % (11.5-14.5); RDW Standard Deviation 40.8 fL (36.4-46.3); White Blood Count 10.67 K/uL (4.8-10.8)
[2020-05-11 06:36] LABS: BUN Creatinine Ratio 25.5 (10-20); Calcium 9.2 mg/dl (8.5-10.1); Creatinine Clr Calc Pharmacy 79.5 ml/min; Est GFR (African American) 85.8; Potassium 4.3 mmol/L (3.5-5.1)
--- NOTE | 2020-05-11 07:37 | Anesthesiology Progress Note ---
Date of Service May 11, 2020 Anesthesia Post Procedure Vital Signs Vital Signs: Temp Pulse Pulse Resp BP Pulse Ox 05/11/20 03:57 36.7 C 80 20 123/71 92 05/10/20 22:49 36.4 C L 89 16 143/83 H 93 05/10/20 20:52 36.8 C 89 18 123/74 93 05/10/20 19:38 36.8 C 90 18 133/79 89 L 05/10/20 18:17 36.6 C 90 22 143/80 H 92 05/10/20 17:47 36.7 C 89 20 129/74 94 05/10/20 17:15 36.7 C 88 20 131/69 95 05/10/20 17:05 85 18 118/77 95 05/10/20 16:55 87 13 132/72 94 05/10/20 16:45 90 19 145/68 H 96 05/10/20 16:35 36.3 C L 95 H 18 152/76 H 94 05/10/20 11:52 36.7 C 94 H 20 143/83 H 95 Pain Intensity Left Shoulder: Pain Intensity: 0 Notes Mental Status: alert / awake / arousable and participated in evaluation Patient Amnestic to Procedure: Yes Nausea / Vomiting: adequately controlled Pain: adequately controlled Airway Patency, RR, SpO2: stable & adequate BP & HR: stable & adequate Hydration State: stable & adequate Anesthetic Complications: no major complications apparent and Pt Satisfied with anesthetic care
[2020-05-11] MEDS ORDERED: NovoLIN-N (NPH) PER UNIT CHARGE SQ ONE (09:00)
[2020-05-11] MEDS ORDERED: NON-FORMULARY MEDICATION (Liraglutide [Victoza 2-Pak] 1.8 MG) SQ SCH (09:00)
[2020-05-11] MEDS: DOCUSATE SODIUM 100 MG CAP PO SCH ×2 (09:02→20:53)
[2020-05-11] MEDS: ASPIRIN 81 MG ECTAB PO SCH ×2 (09:02→20:53)
[2020-05-11] MEDS: PREGABALIN 50 MG CAP PO SCH ×2 (09:02→20:53)
[2020-05-11] MEDS: AMLODIPINE BESYLATE 5 MG TAB PO SCH (09:02)
[2020-05-11] MEDS: MoRPHine SULFATE CR 15 MG TABCR PO SCH ×2 (09:02→20:53)
[2020-05-11] MEDS: PARoxetine HCL 20 MG TAB PO SCH (09:03)
[2020-05-11] MEDS: lisinopriL 40 MG TAB PO SCH (09:03)
[2020-05-11] MEDS: MULTIVITAMIN TAB PO SCH (09:03)
--- NOTE | 2020-05-11 09:06 | Orthopedic Progress Note ---
Date of Service May 11, 2020 Assessment & Plan (1) Status post replacement of left shoulder joint: Postop day 1 status post left reverse TSA PT/OT protocols. DVT prophylaxis with ASA p.o. twice daily, SCDs Pain management-patient currently on MS Contin 15 mg p.o. twice daily at home. Hydrocodone for breakthrough pain. Admission and Anticipated Discharge Date Admission Date: May 10, 2020 Subjective Postop day 1 Patient currently sitting up in her chair at the bedside. She states that her block is wearing off and that she is getting a little bit of pain in the shoulder at this time. No other complaints this morning. Denies shortness of breath, chest pain, lightheadedness. Physical Exam Physical Exam: Dressings are clean, dry, and intact. Hemovac is functioning. She is able to move all of her fingers this morning. Good range of motion of her wrist. Capillary refill less than [address] Results & Data ([facility]) Vital Signs (Past 12 Hours) Vital Signs Temp Pulse Resp BP Pulse Ox 05/11/20 07:54 36.5 C 88 18 175/94 H 94 05/11/20 03:57 36.7 C 80 20 123/71 92 05/10/20 22:49 36.4 C L 89 16 143/83 H 93 Laboratory Results Laboratory Results WBC 10.67 K/uL (4.8-10.8) 05/11/20 05:40 RBC 4.10 M/uL (4.2-5.4) L 05/11/20 05:40 Hgb 11.5 g/dL (12.0-16.0) L 05/11/20 05:40 Hct 34.8 % (37-47) L 05/11/20 05:40 MCV 84.9 fL (80-100) 05/11/20 05:40 MCH 28.0 pg (25-34) 05/11/20 05:40 MCHC 33.0 g/dL (32-36) 05/11/20 05:40 RDW Std Deviation 40.8 fL (36.4-46.3) 05/11/20 05:40 RDW Coeff of German 13.4 % (11.5-14.5) 05/11/20 05:40 Plt Count 320 K/uL (130-400) 05/11/20 05:40 MPV 9.7 fL (7.4-10.4) 05/11/20 05:40 Immature Gran % (Auto) 0.5 % 05/11/20 05:40 Neut % (Auto) 76.7 % 05/11/20 05:40 Lymph % (Auto) 12.9 % 05/11/20 05:40 [place] % (Auto) 9.8 % 05/11/20 05:40 Eos % (Auto) 0.1 % 05/11/20 05:40 Baso % (Auto) 0.0 % 05/11/20 05:40 Neut # (Auto) 8.18 K/uL (1.4-6.5) H 05/11/20 05:40 Lymph # (Auto) 1.38 K/uL (1.2-3.4) 05/11/20 05:40 [place] # (Auto) 1.05 K/uL (0.11-0.59) H 05/11/20 05:40 Eos # (Auto) 0.01 K/uL (0-0.5) 05/11/20 05:40 Baso # (Auto) 0.00 K/uL (0-0.2) 05/11/20 05:40 Immature Gran # (Auto) 0.05 K/uL (0.00-0.02) H 05/11/20 05:40 Sodium 135 mmol/L (136-145) L 05/11/20 05:40 Potassium 4.3 mmol/L (3.5-5.1) 05/11/20 05:40 Chloride 102 mmol/L (98-107) 05/11/20 05:40 Carbon Dioxide 29 mmol/L (21-32) 05/11/20 05:40 Anion Gap 4.0 (3-11) 05/11/20 05:40 BUN 21 mg/dl (7-18) H 05/11/20 05:40 Creatinine 0.83 mg/dl (0.6-1.2) 05/11/20 05:40 Est Cr Clr Drug Dosing 79.5 ml/min 05/11/20 05:40 Est GFR ( Amer) 85.8 05/11/20 05:40 Est GFR (Non-Af Amer) 74.0 05/11/20 05:40 BUN/Creatinine Ratio 25.5 (10-20) H 05/11/20 05:40 Glucose 110 mg/dl (70-99) H 05/11/20 05:40 POC Glucose 128 mg/dl (70-99) H 05/11/20 07:59 Estimat Average Glucose 157 mg/dl 04/24/20 11:35 Hemoglobin A1c 7.1 % (4.5-5.6) H 04/24/20 11:35 Calcium 9.2 mg/dl (8.5-10.1) 05/11/20 05:40 Albumin 3.2 gm/dl (3.4-5.0) L 04/24/20 11:35 Urine Color Yellow 04/24/20 11:35 Urine Appearance Clear (Clear) 04/24/20 11:35 Urine pH 5.0 (4.5-7.5) 04/24/20 11:35 Ur Specific [place] 1.028 (1.000-1.030) 04/24/20 11:35 Urine Protein Negative (Negative) 04/24/20 11:35 Urine Glucose (UA) Negative (Negative) 04/24/20 11:35 Urine Ketones Trace (Negative) H 04/24/20 11:35 Urine Blood Negative (Negative) 04/24/20 11:35 Urine Nitrite Negative (Negative) 04/24/20 11:35 Urine Bilirubin Negative (Negative) 04/24/20 11:35 Urine Urobilinogen Negative (Negative) 04/24/20 11:35 Ur Leukocyte Esterase 1+ (Negative) H 04/24/20 11:35 Urine WBC (Auto) 5-10 /hpf (0-5) H 04/24/20 11:35 Urine RBC (Auto) 5-10 /hpf (0-4) H 04/24/20 11:35 U Hyaline Cast (Auto) 1-5 /lpf (0-5) 04/24/20 11:35 U Epithel Cells (Auto) 10-20 /lpf (0-5) H 04/24/20 11:35 Urine Bacteria (Auto) Negative (Negative) 04/24/20 11:35 Blood Type O Negative 04/24/20 11:35 Antibody Screen NEGATIVE 04/24/20 11:35
[2020-05-11] MEDS: HYDROmorphone INJ 0.5 MG/0.5 ML SYR IV PRN ×2 (11:46→22:37)
--- NOTE | 2020-05-11 13:37 | Pharmacy Report ---
Glycemic Control Consultation - Date of Service May 11, 2020 - Scope Scope: Glycemic Pharmacist consulted for glycemic control and to write orders per [facility] inpatient glycemic control protocol. - Objective Weight: 106.1 kg Accuchecks BSG (last 24hrs): 05/10/20 05/10/20 05/10/20 16:44 17:50 20:49 Glucose POC Glucose 143 H 171 H 218 H 05/11/20 05/11/20 05/11/20 00:20 03:52 05:40 Glucose 110 H POC Glucose 136 H 120 H 05/11/20 05/11/20 07:59 12:07 Glucose POC Glucose 128 H 109 H Laboratory Data (last 24hrs): 05/11/20 05:40 Potassium 4.3 Carbon Dioxide 29 Anion Gap 4.0 Creatinine 0.83 Est Cr Clr Drug Dosing 79.5 HbA1c: Hemoglobin A1c 7.1 % (4.5-5.6) H 04/24/20 11:35 - Recent Pertinent Medications Outpatient Anti-diabetic Regimen: * metformin * liraglutide 1.8 mg SQ * A1c = 7.1 % 04/24/20 The patient is currently receiving: * Basal insulin: NPH 30 units SQ x 1 * Correctional Insulin: Novolog Correction per scale ACHS Goal Range: Low 110 mg/dL - High 140 mg/dL Correction Factor: 20 mg/dL/unit * Prandial insulin: Per carb ratio of 1 unit per 7 grams CHO consumed Risk Factors for Insulin Resistance: * Steroids: dexamethasone 8 mg IV x 1 intraop * Recent Surgery: POD 1 for L shoulder * Diet: T2DM - Assessment & Plan Assessment & Plan: ASSESSMENT: * Ms Gonzalez is a 65 y/o F with a PMH of T2DM on one oral and one injectable agent who presents for shoulder surgery. Patient received IV dexamethasone in the OR (8 mg). Pharmacist last night gave 30 units of NPH to cover. * BSGs yesterday were 155-171-218 mg/dL. Overnight BSGs were 136-120 mg/dL and today have been 128-109 mg/dL. * NPH 15 units given this morning to cover any remaining steroid effects. Novolog loosened with lunch. * Plan to restart metformin tomorrow as renal function and diet are excellent. * ADA & AACE recommend a goal blood sugar range 140-180 mg/dl for the majority of critically ill & non-critically ill patients. However, more stringent targets may be selected in individual cases. Will utilize more stringent goal of 110-140mg/dl based on patient age & comorbidities. Additionally, tighter glycemic control is warranted to facilitate wound healing. PLAN FOR INPATIENT GLYCEMIC CONTROL: * Holding outpatient oral diabetes medications * Basal insulin * NPH 15 units SQ x 1 * Bolus insulin * NovoLog per scale ACHS or Q6hrs while NPO * Goal Range: Low 110 mg/dL - High 140 mg/dL * Correction Factor: 20 mg/dL/unit * Nutritional / Prandial insulin per carb ratio of 1 unit per 7 grams CHO consumed Recommendations for Discharge * Patient's HbA1C is reasonably controlled for her age. * Current HbA1C is 7.1% with goal of 7% * Recommend titrating upwards on metformin Thank you.
[2020-05-11] MEDS ORDERED: NURSING DECISION MEDICATION ONE (15:56)
[2020-05-11] MEDS ORDERED: COUGH DROP (SUGAR FREE) LOZ 24 LOZ/1 BOX BUCCAL PRN (16:06)
[2020-05-11] MEDS: hydroCHLOROthiazide 25 MG TAB PO SCH (20:52)
[2020-05-11] MEDS: SENNA 8.6 MG TAB PO SCH (20:52)
[2020-05-11] MEDS: ATORVASTATIN 20 MG TAB PO SCH (20:53)
[2020-05-12] MEDS: HYDROCODONE/ACETAMOPHEN 5/325MG TAB PO PRN ×2 (05:37→12:07)
[2020-05-12] MEDS: DOCUSATE SODIUM 100 MG CAP PO SCH (07:29)
[2020-05-12] MEDS: ASPIRIN 81 MG ECTAB PO SCH (07:29)
[2020-05-12] MEDS: AMLODIPINE BESYLATE 5 MG TAB PO SCH (07:29)
[2020-05-12] MEDS: PARoxetine HCL 20 MG TAB PO SCH (07:29)
[2020-05-12] MEDS: MULTIVITAMIN TAB PO SCH (07:29)
[2020-05-12] MEDS: lisinopriL 40 MG TAB PO SCH (07:29)
[2020-05-12] MEDS: INSULIN ASPART 100 UNITS/ML 3 ML PEN SC SCH ×2 (07:31→12:38)
[2020-05-12] MEDS: PREGABALIN 50 MG CAP PO SCH (07:36)
[2020-05-12] MEDS: MoRPHine SULFATE CR 15 MG TABCR PO SCH (09:08)
--- NOTE | 2020-05-12 09:09 | Orthopedic Progress Note ---
Date of Service May 12, 2020 Assessment & Plan (1) Status post replacement of left shoulder joint: Postop day 2 status post left reverse TSA PT/OT protocols. DVT prophylaxis with ASA p.o. twice daily, SCDs Pain management-patient currently on MS Contin 15 mg p.o. twice daily at home. Hydrocodone for breakthrough pain. Plan for D/C home today. Admission and Anticipated Discharge Date Admission Date: May 10, 2020 Subjective Postop day 2 Patient currently sitting up in her chair at the bedside. Pain is much more controlled this AM than it was last night. No other complaints this morning. Denies shortness of breath, chest pain, lightheadedness. Physical Exam Constitutional: WD/WN, vitals as above Musculoskeletal: Shoulder: + surgical incision (Left shoulder dressing C/D/I); shoulder normal to inspection, no deformity, no skin erythema, no ecchymosis and no crepitation with shoulder ROM Skin: no rashes, warm and dry Neurologic: normal touch/pain/proprioception (left hand motion is normal. Sensation normal and intact.) Psychiatric: A+Ox3, euthymic affect Speech: normal rate/rhythm/volume of speech Results & Data ([facility]) Vital Signs (Past 12 Hours) Vital Signs Temp Pulse Pulse Resp BP Pulse Ox 05/12/20 06:43 36.8 C 88 16 143/78 H 94 05/11/20 23:23 36.7 C 82 18 143/84 H 97
--- NOTE | 2020-05-18 10:09 | Discharge Summary (DS) ---
DISCHARGE DIAGNOSIS: Degenerative joint disease, left shoulder with rotator cuff arthropathy. SECONDARY DIAGNOSES: History of hypertension, hypercholesterolemia, palpitations, asthma, diabetes mellitus, gastroesophageal reflux disease, obesity. CONSULTS: Lili Chavez PA-C/Dr. Renee. COMPLICATIONS: None. PROCEDURE: Left reverse total shoulder arthroplasty with biceps tenodesis by Dr. Hernandez on 05/10/2020. BRIEF HISTORY: As dictated in the history and physical. HOSPITAL SUMMARY: The patient was admitted on the above-noted date and had the above-noted surgery performed, which she tolerated well. [facility] hospitalist service was consulted for medical management during her stay and they continued to follow patient while admitted. On her first postoperative day, she was sitting in her chair at the bedside and said that her block was wearing off and she was having some mild pain in the shoulder at that time, she had no other complaints. Denied shortness of breath, chest pain or lightheadedness. Dressings clean, dry and intact. Hemovac was functioning. She was moving all of her fingers of the operative side and had good range of motion of her wrist. Sling was in place. Vital signs were stable and she was afebrile. Hemoglobin was 11.5. She was started on PT and OT protocols, continued on DVT prophylaxis and pain management. By her second postoperative day, she continued to remain stable. She had good pain control. Dressings were clean, dry and intact. Neurovascular was intact. Her hand motion was within normal limits. Sensation was intact. Vital signs were stable and it was felt she could be discharged to home. For further review, please see chart. LABORATORY AND X-RAY DATA: As per chart. DISCHARGE INSTRUCTIONS: The patient was discharged home in satisfactory condition on 05/12/2020. DIET: Regular. ACTIVITY: Nonweightbearing on the affected extremity. Follow reverse total shoulder arthroplasty instructions as written as well as special care instructions. Follow up with Dr. Hernandez in 2 weeks. The patient to call for appointment if one has not been made for you. DISCHARGE MEDICATIONS: Aspirin 81 mg p.o. b.i.d., [place] 1-2 tabs p.o. q. 6 hours p.r.n. Resume home meds as listed.
== END 2020-05-12 13:10 | disposition home or self-care (01) | DRG 483 ==
LOC: ASU 11:21 → 3E 16:46

== ENCOUNTER 2023-06-03 08:26 | Observation (INO) ==
--- NOTE | 2023-05-29 14:19 | History & Physical Report ---
Date of Service May 29, 2023 date of surgery: 06/03/23 Procedure: Right Total Knee Arthroplasty Surgeon: Salbador Greenfield Assessment & Plan (1) Arthritis of right knee: Plan: Presents for preop evaluation prior to her upcoming right total knee arthroplasty. Will place on aspirin 81 mg twice a day for 1 month postop. She states she has a pain contract with Dr. Marcus and she will contact them prior to the surgery to see if he will be managing her postoperative pain management. Did discuss that we would typically place her on oxycodone 1-2 tabs every 4-6 hours as needed for pain. Will discharge home with home health physical therapy, follow-up in the office 2 weeks after surgery otherwise has no other questions or concerns The risks and benefits have been discussed including, but not limited to, risk of infection, nerve injury, stiffness, loss of motion, failure to improve, etc. Reasonable outcomes and options of treatment were discussed. An explanation of appropriate alternatives to the procedure that may be advantageous were discussed and their risks and benefits, as well as the risks and benefits of not proceeding with treatment. I offered to answer any additional inquiries concerning the treatment involved. All the patient's questions were answered. The patient is agreeable, understanding of the treatment plan and alternatives, and wishes to proceed with the treatment plan. History of Present Illness Chief Complaint: Right knee pain Primary Care Provider: Myron Marcus DO Jena is a 68-year-old female who presents for preop evaluation prior to upcoming right total knee arthroplasty, she states she had pain in his knee for many years now which is gradually worsened and is now affecting her daily activities including walking standing going up down stairs. She is tried oral anti-inflammatories and Tylenol without relief. She does use morphine as prescribed by her PCP. She underwent MRI evaluation which showed advanced generative changes to her knee with chronic ACL tear as well as early avascular necrosis. At this point would like to proceed with surgical invention Allergies Allergy/AdvReac Type Severity Reaction Status Date / Time bee venom protein (honey bee) Allergy Severe THROAT Verified 05/10/20 11:41 SWELLING,FACE SWELLS adhesive Allergy Unknown TRANSFER Verified 05/10/20 11:41 TAPE = TORE SKIN shark liver oil Allergy Unknown RASH Verified 05/10/20 11:41 Yeast Allergy Unknown RASH Verified 05/10/20 11:41 erythromycin base AdvReac Mild GI upset Verified 05/10/20 11:41 oxycodone AdvReac Mild lower Verified 05/10/20 11:41 blood pressure, feels weird Phenylmercuric Nitrate Allergy Unknown RASH Uncoded 05/10/20 11:41 Home Medications Medication Instructions Recorded Confirmed Type Vitamin D3 1 tab PO HS 04/18/20 05/10/20 History acetaminophen 650 mg 650 mg PO Q12H PRN Pain 04/18/20 05/10/20 History tablet,extended release (Tylenol Arthritis Pain) albuterol sulfate 90 mcg/actuation 1 puff inhalation QID PRN sob 04/18/20 05/10/20 History aerosol inhaler amlodipine 10 mg tablet 10 mg PO QAM 04/18/20 05/10/20 History atorvastatin 20 mg tablet (Lipitor) 20 mg PO HS 04/18/20 05/10/20 History cyclobenzaprine 10 mg tablet 10 mg PO TID PRN Muscle Spasm 04/18/20 05/10/20 History diphenhydramine HCl 25 mg capsule 25 mg PO HS PRN Sleep 04/18/20 05/10/20 History (Benadryl) epinephrine 0.3 mg/0.3 mL 0.3 mg IM Q3H PRN bee stings 04/18/20 05/10/20 History injection, auto-injector (EpiPen) hydrochlorothiazide 12.5 mg capsule 12.5 mg PO HS 04/18/20 05/10/20 History liraglutide 0.6 mg/0.1 mL (18 mg/3 1.8 mg subcut QAM 04/18/20 05/10/20 History mL) subcutaneous pen injector (Victoza 2-Peter) lisinopril 40 mg tablet 40 mg PO QAM 04/18/20 05/10/20 History meloxicam 15 mg tablet 15 mg PO QAM 04/18/20 05/10/20 History metformin 500 mg tablet 500 mg PO BID 04/18/20 05/10/20 History morphine 15 mg tablet,extended 15 mg PO BID 04/18/20 05/10/20 History release multivitamin with minerals 1 tab PO HS 04/18/20 05/10/20 History (Hair,Skin and Nails tablet) paroxetine HCl 20 mg tablet (Paxil) 20 mg PO QAM 04/18/20 05/10/20 History pregabalin 50 mg capsule (Lyrica) 50 mg PO BID 04/18/20 05/10/20 History vit C,E,zinc,copper-[id number] 250 1 cap PO HS 04/18/20 05/10/20 History mg-lutein 5 mg-zeaxanthin 1 mg capsule (Ocuvite Adult 50 Plus) aspirin 81 mg tablet,delayed 81 mg PO BID #60 tabs 05/12/20 Rx release hydrocodone 5 mg-acetaminophen 325 1 - 2 tab PO Q6H PRN pain #20 tabs 05/12/20 Rx mg tablet (Medora) Past Med/Surg History Medical History Anxiety Asthma rarely uses PRN INH, ~ 2x per year at most Cardiac murmur Not noted on exam at PAT; pt reports has never had an echo. Cataracts, both eyes Degenerative disc disease Depression DM type 2 (diabetes mellitus, type 2) GERD (gastroesophageal reflux disease) Hyperlipidemia Hypertension Irregular heart beat "Skips a beat." NSR on EKG at [facility]. Morbid obesity Osteoarthritis Surgical History History of appendectomy History of colonoscopy History of D&C History of left hip replacement History of left knee replacement History of lumbar spinal fusion History of removal of cyst BL breast; benign History of right hip replacement History of tooth extraction History of total abdominal hysterectomy and bilateral salpingo-oophorectomy Family History Sister Diabetes Other No family history of adverse response to anesthesia Social History Smoking Status: Former smoker Second Hand Exposure: No; Do You Dip or Chew Tobacco: No; Hx Alcohol Use: No Hx Substance Use: No Preferred Language: Prydeinig Communication Ability: Effective Physician Anesthesiologist Required: No Beliefs That Will Affect Care: None marital status: Current Living Situation: Spouse Feels Safe at Home: Yes Assistive Devices: None Review of Systems Review of Systems: All systems reviewed & are unremarkable except as noted in HPI & below Constitutional: no fever, no chills and no sweats Respiratory: no cough and no dyspnea Cardiovascular: no chest pain, no dyspnea and no orthopnea Gastrointestinal: no abdominal pain, no nausea and no vomiting Musculoskeletal: as per Subjective / HPI Physical Exam Constitutional: WD/WN, vitals as above no acute distress Respiratory: normal respiratory effort, lungs clear to auscultation no respiratory distress, no labored breathing and does not use accessory muscles Cardiovascular: RRR, no murmur, no edema Gastrointestinal (Abdomen): normal bowel sounds, soft, nontender, no hepatosplenomegaly Musculoskeletal: Knee: + knee abnormal to inspection (RIGHT KNEE: ), + effusion (+1 effusion), + limited ROM of knee (ROM 0/3/110), + knee ROM with crepitation, + joint line tenderness (medial joint line) and + Love's sign positive; no deformity, no skin erythema, no ecchymosis, no valgus laxity, no varus laxity, anterior drawer test negative, Catarino's sign negative and pivot shift test negative Results & Data Results & Data Diagnostic Findings Right Knee X-ray: Right knee series showing advanced degenerative changes to the right knee, narrowing of the medial compartment and patello-femoral joint with patellar spurring noted, findings showing joint space narrowing of the medial compartment and patello-femoral joint, osteophyte formation and subchondral sclerosis noted. overall varus alignment. no acute bony pathology noted.
--- NOTE | 2023-06-02 08:09 | Anesthesiology Consultation ---
Date of Service June 02, 2023 Assessment & Plan (1) Encounter for pre-operative examination: Chart Review Chart Review: Acceptable Risk for Surgery (pending repeat EKG DOS ) and Patient NOT seen in Pre Admission Testing - Check EKG DOS - Check BSG AM DOS - Patient is NOT an ideal OPJ candidate (did not come through PAT- unable to adequately evaluate for OPJ) -Infectious Disease screening: Per PAT nursing assessment on 05/29/23. No known infectious disease contacts in past 10 days or current infectious disease symptoms. No recent travel outside the country. Left reverse total shoulder arthroplasty 05/10/20= Done under [facility] with Grade 2 view with MAC #3.0. ETT #7.0. Atraumatic, all teeth intact History Surgery Operation Date: 06/03/23 12:15 Proposed Procedures p Right Total Knee Arthroplasty - Salbador Greenfield DO Height/Weight Height: 5 ft 3 in Weight: 107.955 kg Allergies Allergy/AdvReac Type Severity Reaction Status Date / Time bee venom protein (honey bee) Allergy Severe THROAT Verified 05/29/23 15:10 SWELLING,FACE SWELLS adhesive Allergy Mild TRANSFER Verified 05/29/23 15:10 TAPE = TORE SKIN shark liver oil Allergy Unknown RASH Verified 05/29/23 15:10 Yeast Allergy Unknown RASH Verified 05/29/23 15:10 erythromycin base AdvReac Mild GI upset Verified 05/29/23 15:10 oxycodone AdvReac Mild lower Verified 05/29/23 15:10 blood pressure, feels weird Phenylmercuric Nitrate Allergy Unknown RASH Uncoded 05/29/23 15:10 Medications Home Medications Medication Instructions Recorded Confirmed Last Taken Vitamin D3 1 tab PO HS 04/18/20 05/29/23 05/09/20 21:00 acetaminophen 650 mg 650 mg PO Q12H PRN Pain 04/18/20 05/29/23 05/09/20 19:00 tablet,extended release (Tylenol Arthritis Pain) albuterol sulfate 90 mcg/actuation 1 puff inhalation QID PRN sob 04/18/20 05/29/23 1 Month Ago aerosol inhaler ~04/09/20 amlodipine 10 mg tablet 10 mg PO QAM 04/18/20 05/29/23 05/10/20 08:00 atorvastatin 20 mg tablet (Lipitor) 20 mg PO HS 0705/29/23 05/09/20 21:00 cyclobenzaprine 10 mg tablet 10 mg PO TID PRN Muscle Spasm 04/18/20 05/29/23 05/09/20 16:00 epinephrine 0.3 mg/0.3 mL 0.3 mg IM Q3H PRN bee stings 04/18/20 05/29/23 Unknown injection, auto-injector (EpiPen) hydrochlorothiazide 12.5 mg capsule 12.5 mg PO 04/18/20 05/29/23 05/09/20 21:00 liraglutide 0.6 mg/0.1 mL (18 mg/3 1.8 mg subcut QA 04/18/20 05/29/23 05/08/20 mL) subcutaneous pen injector (Message Busza 2-Peter) lisinopril 40 mg tablet 40 mg PO QAM 04/18/20 05/29/23 05/09/20 08:00 meloxicam 15 mg tablet 15 mg PO [facility] 04/18/20 05/29/23 1 Week Ago ~05/03/20 metformin 500 mg tablet 1,000 mg PO BID 04/18/20 05/29/23 05/09/20 21:00 morphine 15 mg tablet,extended 15 mg PO 04/18/20 05/29/23 05/10/20 08:00 release multivitamin with minerals 1 tab PO 04/18/20 05/29/23 1 Week Ago (Hair,Skin and Nails tablet) ~05/03/20 paroxetine HCl 20 mg tablet (Paxil) 20 mg PO QAM 04/18/20 05/29/23 05/10/20 08:00 pregabalin 50 mg capsule (Lyrica) 50 mg PO BID 04/18/20 05/29/23 05/10/20 08:00 vit C,E,zinc,copper-xvdwr5v 250 1 cap PO HS 04/18/20 05/29/23 1 Week Ago mg-lutein 5 mg-zeaxanthin 1 mg ~05/03/20 capsule (Ocuvite Adult 50 Plus) meclizine 25 mg tablet 25 mg PO TID PRN Dizziness 05/29/23 05/29/23 Unknown zolpidem 10 mg tablet (Ambien) 10 mg PO HS 05/29/23 05/29/23 Unknown Past Medical History Medical History Anxiety Asthma rarely uses PRN INH Cardiac murmur No murmur noted at PAT appt 04/24/20 per anesthesia consultation Cataracts, both eyes Degenerative disc disease Depression DM type 2 (diabetes mellitus, type 2) NIDDM GERD (gastroesophageal reflux disease) Hyperlipidemia Hypertension Irregular heart beat "Skips a beat."--per pt no director safety, just follows with PCP Morbid obesity BMI 42.1 Osteoarthritis Vertigo pt takes meclizine prn, states has improved recently Past Family History Family History Sister Diabetes Other No family history of adverse response to anesthesia Past Surgical History Surgical History History of appendectomy History of colonoscopy History of D&C History of left hip replacement History of left knee replacement History of lumbar spinal fusion History of removal of cyst BL breast; benign History of reverse total replacement of left shoulder joint 05/10/20 @ [facility] History of right hip replacement History of tooth extraction History of total abdominal hysterectomy and bilateral salpingo-oophorectomy Social History Smoking Status: Former smoker Do You Dip or Chew Tobacco: No Smoking End Date: quit 40yrs ago Hx Alcohol Use: No Hx Substance Use: No substance use type: does not use Testing Laboratory Results 05/21/23= WBC: 8.45 H/H: 12.7/38.4 PLATELETS: 308 SODIUM: 137 POTASSIUM: 4.5 CHLORIDE: 105 CO2: 27.0 BUN: 33.0 CREATININE: 1.30 GLUCOSE: 121 HGB A1C: 6.5 PT: 10.2 PTT: 30.3 INR: 0.90 UA: Moderate leukocyte esterase URINE CULTURE: <10,000 CFUs/ml Electrocardiogram Date: 05/12/23 SR at 91bpm Marked right axis deviation Poor R wave progression ((Per EKG report- "Compared to trace dated 05/18/22, atrial enlargement criteria no longer present." EKG tracing not available (done at [facility] Discussed with Dr. Manning- EKG done at [facility] had mild PRWP by personal visual inspection, per nursing assessment- no SOB with stairs, DM well controlled. Will repeat EKG DOS ) Chest X-Ray Date: 05/12/23 Findings: + NAD
[~2023-06-03 08:26] MED LIST changes: -ACETAMINOPHEN 500 MG TAB PO SCH; +BUPIVACAINE 0.25% PF 30 ML VIAL ONE; +BUPIVACAINE 0.5 % 5 MG/1 ML PF 10ML VIAL ONE; -CEFAZOLIN 2000MG 2,000 MG/15 ML SYR IV SCH; -CeleBREX 200 MG CAP PO SCH; -DEXAMETHASONE SOD INJ 4 MG/ML VIAL ONE; -FAMOTIDINE 20 MG TAB PO SCH; -GABAPENTIN 300 MG CAP PO SCH; -GLYCOPYRROLATE 0.2 MG/ML VIAL ONE; -LARYING-O-JET KIT (LTA) ONE; -LIDOCAINE HCL 2% 2 ML VIAL/AMP(20MG/ML) INFIL ONE; -LR 15ML/HR IV SCH; +LR 500ML BOLUS, THEN 15ML/HR IV SCH; -METOCLOPRAMIDE HCL 10 MG TABLET PO SCH; -MIDAZOLAM HCL 1 MG/ML 2ML VIAL ONE; +MISSING Provider Signature on ORDER(s) SCH; -NEOSTIGMINE METHYLSULFATE 5 MG/5 ML SYR ONE; -ONDANSETRON INJ 2 MG/ML 2 ML VIAL ONE; -PHENYLEPHRINE 100MCG/ML 5ML SYR ONE; -PROPOFOL IV EMULSION 10 MG/ML 20 ML VIAL IV ONE; -ROCURONIUM BROMIDE 10 MG/ML 5 ML VIAL IV ONE; -ROPIVACAINE 0.5% 5 MG/ML 30 ML VIAL ONE; -ePHEDrine sulfate 50 MG/ML SYR ONE; -fentaNYL citrate 100 MCG/2 ML VIAL ONE
[2023-06-03] MEDS ORDERED: GABAPENTIN 600 MG DOSE PO SCH (09:45)
[2023-06-03] MEDS ORDERED: ceFAZolin 2000MG 2,000 MG/15 ML SYR IV SCH (09:45)
[2023-06-03] MEDS ORDERED: ACETAMINOPHEN 500 MG TAB PO SCH (09:45)
[2023-06-03] MEDS ORDERED: METOCLOPRAMIDE HCL 10 MG TABLET PO SCH (09:45)
[2023-06-03] MEDS ORDERED: FAMOTIDINE 20 MG TAB PO SCH (09:45)
[2023-06-03] MEDS ORDERED: ROPIVACAINE 0.5% HCL/PF 150 MG, BUPIVACAINE 0.75% MPF 20 ML, EPINEPHrine 30MG/30ML (OR ... INSTIL SCH (09:45)
[2023-06-03] MEDS ORDERED: TRANEXAMIC ACID 1,000 MG **IV Pre-op IV SCH (09:45)
[2023-06-03] MEDS ORDERED: CeleBREX 200 MG CAP PO SCH (09:45)
[2023-06-03] MEDS ORDERED: LR 60ML/HR IV SCH (09:45)
--- NOTE | 2023-06-03 10:04 | History & Physical Bridge Note ---
Date of Service June 03, 2023 History & Physical Bridge Note I have examined the patient, reviewed the History & Physical and in the interval since the performance of the History & Physical I have noted the following changes of clinical significance: no changes noted
[2023-06-03] MEDS ORDERED: ATROPINE SULFATE 0.1 MG/ML 10ML SYR IV PRN (10:26)
[2023-06-03] MEDS ORDERED: ePHEDrine sulfate 50 MG/ML AMP IV PRN (10:26)
[2023-06-03] MEDS ORDERED: ONDANSETRON INJ 2 MG/ML 2 ML VIAL IV PRN ×2 (10:26→15:34)
[2023-06-03] MEDS ORDERED: fentaNYL citrate PF 100 MCG/2 ML VIAL IV PRN (10:26)
[2023-06-03] MEDS ORDERED: FAMOTIDINE/PF 20 MG/2 ML VIAL IV ONE (10:52)
[2023-06-03] MEDS ORDERED: PROPOFOL IV EMULSION 10 MG/ML 20 ML VIAL IV ONE (10:56)
[2023-06-03] MEDS ORDERED: MIDAZOLAM HCL 1 MG/ML 2ML VIAL ONE (10:56)
[2023-06-03] MEDS ORDERED: LIDOCAINE 2% 2 ML VIAL/AMP(20MG/ML) INFIL ONE (10:56)
[2023-06-03] MEDS ORDERED: TRANEXAMIC ACID 1,000 MG **IV Intra-op IV SCH (12:00)
[2023-06-03] MEDS ORDERED: KETAMINE 50 MG/5 ML SYRINGE ONE (12:33)
--- NOTE | 2023-06-03 13:17 | Operative Report ---
Post Operative Report Pre & Post Diagnosis Operation Date: 06/03/23 10:35 Pre-Op Diagnosis: Osteoarthritis Knee Right Post-Op Diagnosis: Osteoarthritis Knee Right I identified the patient and participated in the time-out.: Yes Procedure Operation Date: 06/03/23 10:35 Actual Procedures p Right Total Knee Arthroplasty(Right)Utilizing [facility] patient-matched total knee arthroplasty femur 5 tibia 3 poly 13 patella 29 pennie Greenfield DO Surgeon Salbador Greenfield DO Professor Of Oceanography Ernesto MORRIS Estimated Blood Loss 5 Findings Consistent with Post-Op Diagnosis Patient presents with severe end-stage tricompartmental DJD eburnated [id number] marginal osteophytes moderate to large effusion subchondral cystic changes Specimens Bone and cartilage Drains Medium bore Anesthesia Type MAC Spinal Regional Complications none Disposition Accompanied Patient To Recovery: No Disposition: Recovery Room Indications Patient presents with severe end-stage DJD having failed attempted conservative management occluding physical therapy anti-inflammatories relative rest activity modifications corticosteroid injection viscosupplementation above intraoperative findings were noted Description of Procedure After proper prepping and draping of the Right lower extremity anterior midline incision was made over the region of the extensor extensor mechanism after meticulous hemostasis was obtained and maintained in subcutaneous tissues a medial parapatellar incision was made The patella was subluxed lateralward the medial lateral gutter were cleaned from any hypertrophic synovitis and scar tissue of the distal femoral block was placed and the distal femoral osteotomy cut was made subsequently the chamfers anterior and posterior osteotomy cuts were made utilizing the 4-in-1 block the tibia was subsequently subluxed anteriorward medial and ateral meniscal remnants were excised in their entirety remnants of the anterior and posterior cruciate ligaments were excised in their entirety excellent exposure of the proximal tibia was obtained the tibial osteotomy guide was placed on the proximal tibial osteotomy cut was made once again the knee was irrigated with copious amounts of sterile saline solution the patella was subsequently everted lateralward thickened scar tissue around the patella was removed the patella was subsequently cut utilizing a freehand technique and was drilled prepared for final preparation and placement of patella socially flexion-extension gaps were checked and the equal and symmetric trials were placed to the appropriate femoral and tibial trials with poly-spacer being placed for equal flexion and extension gaps and full range of motion including extension to 0 and flexion to 140 the trial components after having been taken to recovery range of motion was subsequently removed meticulous hemostasis was obtained and maintained subsequently a knee block injection of joint cocktail including ropivacaine 0.5% 150 mg. Bupivacaine 0.5% epinephrine 1-200,030 mL's toradol 30 mg dexamethasone 4 mg ketamine 10 mg clonidine 100 micrograms normal saline solution 30 mg was infiltrated into the soft tissues of the posterior knee medial lateral gutters and periosteal synovium special attention was paid to protect neurovascular structures at all times subsequently trial components having been removed the knee was irrigated with sterile saline solution. debris was removed the proximal tibia was subsequently prepared and was made ready for the placement of the tibial component tibial component was also cemented and tamped into position the femoral component was subsequently placed and cemented in the position the patellar component was subsequently cemented in position because hemostasis once again obtained and maintained wound having been thoroughly irrigated with debridement and debridement lavage was performed as well as a medial parapatellar incision closed with #1 Vicryl in interrupted fashion subcutaneous was closed with #2 Vicryl skin was closed with skin clips. PA-C was necessary for prepping and drapping as well as wound closure of deep fascia Sub cutaneous tissue and skin and was necessary for the case. A sterile compressive dressing was placed patient was taken to recovery in stable condition of report dictated by Jean Pierre I attest to the content of the Intraoperative Record and any orders documented therein. Any exceptions are noted below.Due to the complex nature of the procedure, the entire surgery was performed with the operational assistance of Ernesto MORRIS. The drug safety assistant, under direct supervision, was involved in the actual performance of all aspects of the surgical procedure including hemostasis, tissue retraction and incision, instrument management, patient positioning, and wound closure. I attest to the content of the Intraoperative Record and any orders documented therein. Any exceptions are noted below.
--- NOTE | 2023-06-03 14:50 | XRay Report ---
XR knee RT 1 or 2V routine CLINICAL HISTORY: Surgical Post Op TECHNIQUE: 2 views of the right knee were obtained. Comparison: None available at the time of this dictation. FINDINGS: Patient is status post total knee arthroplasty with expected postsurgical changes including soft tiss ue swelling and subcutaneous emphysema. No periarticular lucency or hardware fracture is seen. IMPRESSION: Expected postoperative appearance status post placement of total knee arthroplasty. ACT 112: Negative or not required by law. Electronically signed by: Edilberto Gaytan M.D. 06/03/2023 2:49 PM
--- NOTE | 2023-06-03 14:58 | Anesthesiology Progress Note ---
Date of Service June 03, 2023 Anesthesia Post Procedure Vital Signs Vital Signs: Temp Pulse Resp BP Pulse Ox O2 Del Method O2 Flow Rate 06/03/23 14:50 72 22 117/62 96 Room Air 06/03/23 14:30 68 18 140/51 L 98 Oxymask 2 06/03/23 14:20 75 16 148/78 H 100 Oxymask 4 06/03/23 14:40 36.5 C 78 17 128/65 95 Room Air 06/03/23 14:10 79 16 129/57 L 95 Oxymask 6 06/03/23 14:01 37.1 C 77 17 150/66 H 95 Oxymask 8 06/03/23 09:20 36.9 C 97 H 20 164/81 H 96 Room Air Transfer of Care Handoff Completed per policy Notes Mental Status: alert / awake / arousable Patient Amnestic to Procedure: Yes Nausea / Vomiting: adequately controlled Pain: adequately controlled Airway Patency, RR, SpO2: stable & adequate BP & HR: stable & adequate Hydration State: stable & adequate Neuraxial Anesthesia: was administered and sensory block is resolving Anesthetic Complications: no major complications apparent and Pt Satisfied with anesthetic care
[2023-06-03] MEDS ORDERED: ALBUTEROL HFA 8 GM INHALER INH PRN (15:34)
[2023-06-03] MEDS ORDERED: PHARMACY GLYCEMIC MGMT CONSULT PRN (15:34)
[2023-06-03] MEDS ORDERED: bisacodyL 10 MG SUPP PR PRN (15:34)
[2023-06-03] MEDS ORDERED: MECLIZINE HCL 25 MG TAB PO PRN (15:34)
[2023-06-03] MEDS ORDERED: NALOXONE HCL 0.4 MG/1 ML VIAL/CARP IV PRN (15:34)
[2023-06-03] MEDS ORDERED: MAGNESIUM HYDROXIDE SUSP 30 ML UDC PO PRN (15:34)
[2023-06-03] MEDS ORDERED: diphenhydrAMINE 50 MG/ML VIAL IV PRN (15:34)
[2023-06-03] MEDS: SODIUM CHLORIDE 0.9% 1,000 ML IV SCH (15:57)
--- NOTE | 2023-06-03 15:58 | Hospitalist Consultation ---
Date of Consultation June 03, 2023 Assessment & Plan (1) Status post right knee replacement: -Currently stable and with well-controlled pain -Pain control, perioperative abx, DVT PPX, and IV fluids per the primary team -Agree with am labs tomorrow, we will follow -Thank you for allowing us to participate in the care of this patient, please reach out with any questions or concerns -Medicine will continue to follow (2) Hypertension: -Stable -Can continue HCTZ tonight as she is getting IV fluids -Can continue lisinopril and amlodipine tomorrow if stable (3) DM type 2 (diabetes mellitus, type 2): -Pharmacy glycemic consult placed by primary team, follow recommendations (4) Hyperlipidemia: -Conitnue statin (5) GERD (gastroesophageal reflux disease): -Daily famotidine while admitted (6) Asthma: -Stable on RA -Continue prn albuterol and incentive spirometry (7) Depression: -Continue Paxil Supervising Physician Co-Signing Physician Notes I personally saw and examined the patient. I verified all padilla points and agree with Antonino Recinos PA-C with the following exceptions and/or additions: 68 year old female POD #0 right TKA. having significant pain in left leg when seen after moving earlier today. Winona did not significantly help. Missed her MS contin for the last 2 nights O/E HS RRR, no murmurs, Chest CTAB, Abdo SNT, NV intact distal to operation site. A/P s/p TKA - morphine 4mg q4h PRN added for pain relief overnight given she has missed two days of MS contin. Can be discontinued tomorrow once MS contin has had time to have effect. Advised patient to discuss pain with Dr Greenfield tomorrow if still occurring. Will add magnesium to AM labs as having significant cramping pain mainly. Consider iron panel as outpatient for restless leg syndrome +/- ropinirole. T2DM - reports HbA1C in 6's a few weeks ago. Pharmacy consulted for glucose control with insulin while here but can return to her usual regimen on discharge. HTN - since patient took all her anti-hypertensive this morning suspect these can all be resumed tomorrow as ordered give current BP measurements History of Present Illness Reason for Consultation: Post-op medical management Requesting Physician: Salbador Greenfield DO Attending Physician: Dr. Shen Ivy History of Present Illness Jena is a 68 year old female with a PMH significant for PTSD, arthritis, HTN, asthma, vertigo, hyperlipidemia, and depression who presented to the [facility] OR on 06/03 for Right Total Knee Arthroplasty with Dr. Greenfield. Per review, vitals have remained stable. Per the operative report, EBL was listed as 5cc, anesthesia was listed as "[facility]", and there were no reported intraoperative complications. At the time of the exam the patient was lying in bed in no acute distress. She feels well after her procedure, slowly re-gaining sensation in the RLE. She took her am lisinopril, amlodipine, and lyrica this am. She has no complaints that the time of the exam. Please refer to Dr. Ivy's attestation for any changes to the treatment plan Allergies Allergy/AdvReac Type Severity Reaction Status Date / Time bee venom protein (honey bee) Allergy Severe THROAT Verified 06/03/23 09:13 SWELLING,FACE SWELLS adhesive Allergy Mild TRANSFER Verified 06/03/23 09:13 TAPE = TORE SKIN shark liver oil Allergy Unknown RASH Verified 06/03/23 09:13 Yeast Allergy Unknown RASH Verified 06/03/23 09:13 erythromycin base AdvReac Mild GI upset Verified 06/03/23 09:13 oxycodone AdvReac Mild lower Verified 06/03/23 09:13 blood pressure, feels weird Phenylmercuric Nitrate Allergy Unknown RASH Uncoded 06/03/23 09:13 Home Medications Medication Instructions Recorded Confirmed Type Vitamin D3 1 tab PO HS 04/18/20 06/03/23 History acetaminophen 650 mg 650 mg PO Q12H PRN Pain 04/18/20 06/03/23 History tablet,extended release (Tylenol Arthritis Pain) albuterol sulfate 90 mcg/actuation 1 puff inhalation QID PRN sob 04/18/20 06/03/23 History aerosol inhaler amlodipine 10 mg tablet 10 mg PO QAM 04/18/20 06/03/23 History atorvastatin 20 mg tablet (Lipitor) 20 mg PO HS 04/18/20 06/03/23 History cyclobenzaprine 10 mg tablet 10 mg PO TID PRN Muscle Spasm 04/18/20 06/03/23 History epinephrine 0.3 mg/0.3 mL 0.3 mg IM Q3H PRN bee stings 04/18/20 06/03/23 History injection, auto-injector (EpiPen) hydrochlorothiazide 12.5 mg capsule 12.5 mg PO HS 04/18/20 06/03/23 History liraglutide 0.6 mg/0.1 mL (18 mg/3 1.8 mg subcut QAM 04/18/20 06/03/23 History mL) subcutaneous pen injector (Sift Co.za 2-Peter) lisinopril 40 mg tablet 40 mg PO QAM 04/18/20 06/03/23 History meloxicam 15 mg tablet 15 mg PO QAM 04/18/20 06/03/23 History metformin 500 mg tablet 1,000 mg PO BID 04/18/20 06/03/23 History morphine 15 mg tablet,extended 15 mg PO HS 04/18/20 06/03/23 History release multivitamin with minerals 1 tab PO HS 04/18/20 06/03/23 History (Hair,Skin and Nails tablet) paroxetine HCl 20 mg tablet (Paxil) 20 mg PO QAM 04/18/20 06/03/23 History pregabalin 50 mg capsule (Lyrica) 50 mg PO BID 04/18/20 06/03/23 History vit C,E,zinc,copper-rbqhr6r 250 1 cap PO HS 04/18/20 06/03/23 History mg-lutein 5 mg-zeaxanthin 1 mg capsule (Ocuvite Adult 50 Plus) meclizine 25 mg tablet 25 mg PO TID PRN Dizziness 05/29/23 06/03/23 History zolpidem 10 mg tablet (Ambien) 10 mg PO HS 05/29/23 06/03/23 History aspirin 81 mg tablet,delayed 81 mg PO BID 30 days #60 tabs 06/03/23 Rx release cefadroxil 500 mg capsule 500 mg PO BID #28 caps 06/03/23 Rx polyethylene glycol 3350 17 gram 17 g PO DAILY PRN constipation #5 06/03/23 Rx oral powder packet (Miralax) ea Patient History Medical History Anxiety Asthma rarely uses PRN INH Cardiac murmur No murmur noted at PAT appt 04/24/20 per anesthesia consultation Cataracts, both eyes Degenerative disc disease Depression DM type 2 (diabetes mellitus, type 2) NIDDM GERD (gastroesophageal reflux disease) Hyperlipidemia Hypertension Irregular heart beat "Skips a beat."--per pt no de alcoholizer, just follows with PCP Morbid obesity BMI 42.1 Osteoarthritis Vertigo pt takes meclizine prn, states has improved recently Surgical History History of appendectomy History of colonoscopy History of D&C History of left hip replacement History of left knee replacement History of lumbar spinal fusion History of removal of cyst BL breast; benign History of reverse total replacement of left shoulder joint 05/10/20 @ [facility] History of right hip replacement History of tooth extraction History of total abdominal hysterectomy and bilateral salpingo-oophorectomy Family History Sister Diabetes Other No family history of adverse response to anesthesia Social History Smoking Status: Former smoker Smoking End Date: quit 40yrs ago; Second Hand Exposure: No; Do You Dip or Chew Tobacco: No; Tobacco Cessation Education Requested by Patient: No Hx Alcohol Use: No Hx Substance Use: No Preferred Language: Telugu Communication Ability: Effective 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 Beliefs That Will Affect Care: None marital status: Current Living Situation: Family Current Living Situation Comment: Lives with daughter Other Information That Helps Us Care for You: No Feels Safe at Home: Yes Safety Concerns: Feels Safe At This Time Assistive Devices: Cane and Glasses Assistive Devices Comment: reading glasses Physical Exam Physical Exam: Physical Exam: General: In no acute distress, stated age, well-nourished, good hygiene HEENT: Normocephalic, atraumatic, no scleral icterus, pupils around round, symmetrical, and reactive to light, moist mucus membranes, trachea midline, no thyromegaly Chest/Pulm: No respiratory distress, symmetrical chest expansion, clear breath sounds throughout Cardiac: RRR, no murmurs noted Abdomen: Negative for ascites and bruising, normoactive bowel sounds, soft, non-tender to palpation throughout Musculoskeletal: RLE is currently wrapped, with brace in place, without signs of drainage, intact sensation and motor function in the LE's Extremities: LE's are warm with cap re-fill < 3 seconds BL Skin: Warm, dry, no rashes , lesions, or scars noted Neuro: Alert and oriented to person, place, month, year, and president, no focal defects, no tremors noted Psych: No acute distress, calm and cooperative during the exam Results & Data Results & Data Vital Signs (Past 12 Hours) Vital Signs Temp Pulse Resp BP Pulse Ox O2 Del Method O2 Flow Rate 06/03/23 15:30 36.7 C 80 16 124/78 94 Room Air 06/03/23 15:15 75 22 133/71 98 Nasal Cannula 2 06/03/23 15:00 75 15 142/61 H 95 Nasal Cannula 2 06/03/23 14:50 72 22 117/62 96 Room Air 06/03/23 14:30 68 18 140/51 L 98 Oxymask 2 06/03/23 14:20 75 16 148/78 H 100 Oxymask 4 06/03/23 14:40 36.5 C 78 17 128/65 95 Room Air 06/03/23 14:10 79 16 129/57 L 95 Oxymask 6 06/03/23 14:01 37.1 C 77 17 150/66 H 95 Oxymask 8 06/03/23 09:20 36.9 C 97 H 20 164/81 H 96 Room Air Laboratory Results Abnormal lab results 06/03/23 06/03/23 Range/Units 08:59 14:02 POC Glucose 140 H 100 H (70-99) mg/dl Diagnostic Findings Knee X-Ray 06/03/23 14:05 XR knee RT 1 or 2V routine CLINICAL HISTORY: Surgical Post Op TECHNIQUE: 2 views of the right knee were obtained. Comparison: None available at the time of this dictation. FINDINGS: Patient is status post total knee arthroplasty with expected postsurgical changes including soft tissue swelling and subcutaneous emphysema. No periarticular lucency or hardware fracture is seen. IMPRESSION: Expected postoperative appearance status post placement of total knee arthroplasty. ACT 112: Negative or not required by law. Electronically signed by: Edilberto Gaytan M.D. 06/03/2023 2:49 PM ECG Additional Comments: Normal sinus rhythm Normal ECG When compared with ECG of 24-APR-2020 11:30, No significant change was found PG Care Time/CCT Total # of Minutes Spent Total Time Spent with Patient: Total time spent is greater than 50% in coordination of care (as documented) at patient's floor/unit and/or counseling patient: [place] [address] IN/OBS CONSULT LVL 4,60M Patient Type New Medical Decision Making Moderate Complexity Diagnoses Status post right knee replacement Z96.651 Hypertension I10 DM type 2 (diabetes mellitus, type 2) E11.9 Hyperlipidemia E78.5 GERD (gastroesophageal reflux disease) K21.9 Asthma J45.909 Depression F32.9
[2023-06-03] MEDS ORDERED: CARBOHYDRATES FOR HYPOGLYCEMIA PO PRN (16:15)
[2023-06-03] MEDS ORDERED: GLUCOSE 40% GEL 15 GM TUBE PO PRN (16:15)
[2023-06-03] MEDS ORDERED: GLUCOSE 10 TAB/TUBE PO PRN (16:15)
[2023-06-03] MEDS ORDERED: GLUCAGON FOR INJ 1 MG VIAL IM PRN (16:15)
[2023-06-03] MEDS ORDERED: DEXTROSE 50% 50 ML SYRINGE IV PRN (16:15)
[2023-06-03] MEDS: INSULIN ASPART PER UNIT CHARGE SC SCH ×2 (17:37→22:23)
[2023-06-03] MEDS: HYDROCODONE/ACETAMOPHEN 5/325MG TAB PO PRN (17:38)
[2023-06-03] MEDS: DOCUSATE SODIUM 100 MG CAP PO SCH (20:09)
[2023-06-03] MEDS: ASPIRIN 81 MG ECTAB PO SCH (20:09)
[2023-06-03] MEDS: PREGABALIN 50 MG CAP PO SCH (20:10)
[2023-06-03] MEDS: ceFAZolin 2000MG 2,000 MG/15 ML SYR IV SCH (20:10)
[2023-06-03] MEDS ORDERED: SENNA 8.6 MG TAB PO SCH (21:00)
[2023-06-03] MEDS ORDERED: metFORMIN HCL 500 MG TAB PO SCH (21:00)
[2023-06-03] MEDS ORDERED: ZOLPIDEM TARTRATE 10 MG TAB PO SCH (21:00)
[2023-06-03] MEDS ORDERED: LANTUS PER UNIT CHARGE SC SCH (21:00)
[2023-06-03] MEDS ORDERED: ATORVASTATIN 20 MG TAB PO SCH (21:00)
[2023-06-03] MEDS ORDERED: CEROVITE ADV FORMULA TAB PO SCH (21:00)
[2023-06-03] MEDS ORDERED: MoRPHine SULFATE CR 15 MG TABCR PO SCH (21:00)
[2023-06-03] MEDS ORDERED: hydroCHLOROthiazide 25 MG TAB PO SCH (21:00)
[2023-06-03] MEDS: CYCLOBENZAPRINE HCL 10 MG TAB PO PRN (21:47)
[2023-06-04] MEDS: MoRPHine SULFATE 4 MG/ML 1 ML CARP\\VIAL IV PRN ×3 (01:04→10:51)
[2023-06-04] MEDS: SODIUM CHLORIDE 0.9% 1,000 ML IV SCH (01:36)
[2023-06-04] MEDS: ceFAZolin 2000MG 2,000 MG/15 ML SYR IV SCH (04:35)
[2023-06-04 06:55] LABS: Hematocrit (blood only) 33.6 % (37.0-47.0); Hemoglobin 11.7 g/dl (12.0-16.0); Mean Corpuscular Hemoglobin 30.2 pg (25.0-34.0); Mean Corpuscular Hgb Conc 34.8 g/dL (32.0-36.0); Mean Corpuscular Volume 86.6 fL (80.0-100.0); Mean Platelet Volume 10.6 fL (9.4-12.4); Platelet Count 263 K/uL (130-400); RDW Coefficient of Variation 12.5 % (11.5-14.5); RDW Standard Deviation 39.4 fL (36.4-46.3); Red Blood Count 3.88 M/uL (4.20-5.40); White Blood Count 13.17 K/ul (4.8-10.8)
[2023-06-04 07:05] LABS: BUN Creatinine Ratio 16.8 (10-20); Calcium 8.4 mg/dl (8.6-10.3); Est GFR (African American) 54.3 ml/min; Est GFR (Non-African American) 46.9 ml/min; Magnesium 1.4 mg/dl (1.7-2.4); Potassium 4.1 mmol/L (3.5-5.1)
[2023-06-04] MEDS: DOCUSATE SODIUM 100 MG CAP PO SCH (07:56)
[2023-06-04] MEDS: ASPIRIN 81 MG ECTAB PO SCH (07:56)
[2023-06-04] MEDS: PREGABALIN 50 MG CAP PO SCH (08:02)
[2023-06-04] MEDS: HYDROCODONE/ACETAMOPHEN 5/325MG TAB PO PRN ×2 (08:02→12:00)
[2023-06-04] MEDS: INSULIN ASPART PER UNIT CHARGE SC SCH ×2 (08:08→12:41)
--- NOTE | 2023-06-04 08:09 | Hospitalist Progress Note ---
Date of Service June 04, 2023 Assessment & Plan (1) Status post right knee replacement: Plan: POD#1 s/p Right Total Knee Arthroplasty(Right)Utilizing [employer] 2 patient-matched total knee arthroplasty femur 5 tibia 3 poly 13 patella 29 pennie Greenfield, DO Pain control/bowel regimen/PT/OT per primary service WBC elevation likely 2nd to steroids, has been afebrile Hgb 11.5--> 11.7 and stable on repeat labs Planning for dc per primary -- messaged about need for PO pain med control. Per patient, Fernando to re-eval this afternoon. Patient req Ortho rx for hospital bed at home as well. CM alerted. (2) Hypertension: Plan: BP elevated in setting of pain, asymptomatic Got her HCTZ, lisinopril, amlodipine this morning, monitor BP on repeat (3) DM type 2 (diabetes mellitus, type 2): Plan: Pharmacy glycemic consult placed by primary team, follow recommendations (4) Hyperlipidemia: Plan: -Conitnue statin (5) GERD (gastroesophageal reflux disease): Plan: -Daily famotidine while admitted (6) Asthma: Plan: -Stable on RA -Continue prn albuterol and incentive spirometry Lungs clear on exam (7) Depression: Plan: -Continue Paxil Plan Thank you for allowing hospitalist service to participate in the care of Ms Gonzalez. Hospitalist service will sign off at this time. Please call with any questions/concerns. Admission and Anticipated Discharge Date Admission Date: June 03, 2023 Supervising Physician Co-Signing Physician Notes The patient was not seen by me. The chart was reviewed. Case discussed with ARTURO Rondon. Agree with assessment and plan Subjective Eval this morning, getting ready to work with physical therapy. Reports poor sleep, pain had to be controlled with IV, just got PO for the first time. No chest pain, shortness of breath, abdominal pain, nausea/vomiting. Passing gas. Discussed possible dc later today if pain controlled w/ PO vs another night. Messaged orthopedic about concerns - to re-eval this afternoon. Review of Systems Review of Systems: All systems reviewed & are unremarkable except as noted in HPI & below Physical Exam Physical Exam: General: WD/WN obese female sitting up in bed, NAD but mildly uncomfortable appearing HEENT: head normocephalic, atraumatic, mmm, trachea midline Resp: CTA, no w/c/r, on room air CV: RRR, no significant m/r/g, no pitting edema GI: +BS, soft/NT : no cortes MSK/Neuro: no focal deficit R knee with greg wrap, hemovac with bloody drainage, NVI, calves supple, pulses palpation, strength intact b/l LE prior L knee incision noted, well healed Psych: AOx3, cooperative with exam Results & Data Results & Data Vital Signs (Past 12 Hours) Vital Signs Temp Pulse Resp BP Pulse Ox O2 Del Method 06/04/23 07:27 37.1 C 87 18 179/100 H 94 Room Air 06/04/23 03:00 37.2 C 78 18 146/80 H 93 Room Air 06/03/23 23:00 36.9 C 84 18 155/77 H 96 Room Air Laboratory Results 06/04/23 06/04/23 06/04/23 Range/Units 07:41 06:20 06:20 WBC 13.17 H (4.8-10.8) K/ul RBC 3.88 L (4.20-5.40) M/uL Hgb 11.7 L (12.0-16.0) g/dl Hct 33.6 L (37.0-47.0) % MCV 86.6 (80.0-100.0) fL MCH 30.2 (25.0-34.0) pg MCHC 34.8 (32.0-36.0) g/dL RDW Std Deviation 39.4 (36.4-46.3) fL RDW Coeff of German 12.5 (11.5-14.5) % Plt Count 263 (130-400) K/uL MPV 10.6 (9.4-12.4) fL Sodium 134 L (136-145) mmol/L Potassium 4.1 (3.5-5.1) mmol/L Chloride 101 (98-107) mmol/L Carbon Dioxide 25 (21-32) mmol/L Anion Gap 8 (3-11) BUN 20 (6-23) mg/dl Creatinine 1.19 (0.6-1.2) mg/dl Est Cr Clr Drug Dosing 53.0 ml/min Est GFR ( Amer) 54.3 ml/min Est GFR (Non-Af Amer) 46.9 ml/min BUN/Creatinine Ratio 16.8 (10-20) Glucose 138 H (70-99(Fasting)) mg/dl POC Glucose 152 H (70-99) mg/dl Calcium 8.4 L (8.6-10.3) mg/dl Magnesium 1.4 L (1.7-2.4) mg/dl Blood Type Antibody Screen 06/03/23 06/03/23 06/03/23 Range/Units 20:53 16:52 14:02 WBC (4.8-10.8) K/ul RBC (4.20-5.40) M/uL Hgb (12.0-16.0) g/dl Hct (37.0-47.0) % MCV (80.0-100.0) fL MCH (25.0-34.0) pg MCHC (32.0-36.0) g/dL RDW Std Deviation (36.4-46.3) fL RDW Coeff of German (11.5-14.5) % Plt Count (130-400) K/uL MPV (9.4-12.4) fL Sodium (136-145) mmol/L Potassium (3.5-5.1) mmol/L Chloride (98-107) mmol/L Carbon Dioxide (21-32) mmol/L Anion Gap (3-11) BUN (6-23) mg/dl Creatinine (0.6-1.2) mg/dl Est Cr Clr Drug Dosing ml/min Est GFR ( Amer) ml/min Est GFR (Non-Af Amer) ml/min BUN/Creatinine Ratio (10-20) Glucose (70-99(Fasting)) mg/dl POC Glucose 137 H 135 H 100 H (70-99) mg/dl Calcium (8.6-10.3) mg/dl Magnesium (1.7-2.4) mg/dl Blood Type Antibody Screen 06/03/23 06/03/23 Range/Units 08:59 08:47 WBC (4.8-10.8) K/ul RBC (4.20-5.40) M/uL Hgb (12.0-16.0) g/dl Hct (37.0-47.0) % MCV (80.0-100.0) fL MCH (25.0-34.0) pg MCHC (32.0-36.0) g/dL RDW Std Deviation (36.4-46.3) fL RDW Coeff of German (11.5-14.5) % Plt Count (130-400) K/uL MPV (9.4-12.4) fL Sodium (136-145) mmol/L Potassium (3.5-5.1) mmol/L Chloride (98-107) mmol/L Carbon Dioxide (21-32) mmol/L Anion Gap (3-11) BUN (6-23) mg/dl Creatinine (0.6-1.2) mg/dl Est Cr Clr Drug Dosing ml/min Est GFR ( Amer) ml/min Est GFR (Non-Af Amer) ml/min BUN/Creatinine Ratio (10-20) Glucose (70-99(Fasting)) mg/dl POC Glucose 140 H (70-99) mg/dl Calcium (8.6-10.3) mg/dl Magnesium (1.7-2.4) mg/dl Blood Type O Negative Antibody Screen NEGATIVE Diagnostic Findings Knee X-Ray 06/03/23 14:05 XR knee RT 1 or 2V routine CLINICAL HISTORY: Surgical Post Op TECHNIQUE: 2 views of the right knee were obtained. Comparison: None available at the time of this dictation. FINDINGS: Patient is status post total knee arthroplasty with expected postsurgical changes including soft tissue swelling and subcutaneous emphysema. No periarticular lucency or hardware fracture is seen. IMPRESSION: Expected postoperative appearance status post placement of total knee arthroplasty. ACT 112: Negative or not required by law. Electronically signed by: Edilberto Gaytan M.D. 06/03/2023 2:49 PM PG Care Time/CCT Total # of Minutes Spent Total Time Spent with Patient: Total time spent is greater than 50% in coordination of care (as documented) at patient's floor/unit and/or counseling patient: Coding Level of Care Code 46543 SUB INP/OBS CARE 2/35MIN Diagnoses Status post right knee replacement Z96.651 Hypertension I10 DM type 2 (diabetes mellitus, type 2) E11.9 Hyperlipidemia E78.5 GERD (gastroesophageal reflux disease) K21.9 Asthma J45.909 Depression F32.9
--- NOTE | 2023-06-04 08:18 | Orthopedic Progress Note ---
Date of Service June 04, 2023 Assessment & Plan (1) Status post right knee replacement: Plan: 68 yo female stable POD #1 s/p right TKA 1. Med management 2. DVT prophylaxis- ASA, SCDs 3. PT/OT 4. D/C planning- home w/ HH Admission and Anticipated Discharge Date Admission Date: June 03, 2023 Subjective Pt resting in bed, states moderate pain overnight, now improved Physical Exam Physical Exam: Dressing in place, hemovac and LYLA in place, toes mobile, NVI Results & Data Vital Signs (Past 12 Hours) Vital Signs Temp Pulse Resp BP Pulse Ox O2 Del Method 06/04/23 07:27 37.1 C 87 18 179/100 H 94 Room Air 06/04/23 03:00 37.2 C 78 18 146/80 H 93 Room Air 06/03/23 23:00 36.9 C 84 18 155/77 H 96 Room Air Laboratory Results 06/04/23 06/04/23 06/04/23 Range/Units 07:41 06:20 06:20 WBC 13.17 H (4.8-10.8) K/ul RBC 3.88 L (4.20-5.40) M/uL Hgb 11.7 L (12.0-16.0) g/dl Hct 33.6 L (37.0-47.0) % MCV 86.6 (80.0-100.0) fL MCH 30.2 (25.0-34.0) pg MCHC 34.8 (32.0-36.0) g/dL RDW Std Deviation 39.4 (36.4-46.3) fL RDW Coeff of German 12.5 (11.5-14.5) % Plt Count 263 (130-400) K/uL MPV 10.6 (9.4-12.4) fL Sodium 134 L (136-145) mmol/L Potassium 4.1 (3.5-5.1) mmol/L Chloride 101 (98-107) mmol/L Carbon Dioxide 25 (21-32) mmol/L Anion Gap 8 (3-11) BUN 20 (6-23) mg/dl Creatinine 1.19 (0.6-1.2) mg/dl Est Cr Clr Drug Dosing 53.0 ml/min Est GFR ( Amer) 54.3 ml/min Est GFR (Non-Af Amer) 46.9 ml/min BUN/Creatinine Ratio 16.8 (10-20) Glucose 138 H (70-99(Fasting)) mg/dl POC Glucose 152 H (70-99) mg/dl Calcium 8.4 L (8.6-10.3) mg/dl Magnesium 1.4 L (1.7-2.4) mg/dl Blood Type Antibody Screen 06/03/23 06/03/23 06/03/23 Range/Units 20:53 16:52 14:02 WBC (4.8-10.8) K/ul RBC (4.20-5.40) M/uL Hgb (12.0-16.0) g/dl Hct (37.0-47.0) % MCV (80.0-100.0) fL MCH (25.0-34.0) pg MCHC (32.0-36.0) g/dL RDW Std Deviation (36.4-46.3) fL RDW Coeff of German (11.5-14.5) % Plt Count (130-400) K/uL MPV (9.4-12.4) fL Sodium (136-145) mmol/L Potassium (3.5-5.1) mmol/L Chloride (98-107) mmol/L Carbon Dioxide (21-32) mmol/L Anion Gap (3-11) BUN (6-23) mg/dl Creatinine (0.6-1.2) mg/dl Est Cr Clr Drug Dosing ml/min Est GFR ( Amer) ml/min Est GFR (Non-Af Amer) ml/min BUN/Creatinine Ratio (10-20) Glucose (70-99(Fasting)) mg/dl POC Glucose 137 H 135 H 100 H (70-99) mg/dl Calcium (8.6-10.3) mg/dl Magnesium (1.7-2.4) mg/dl Blood Type Antibody Screen 06/03/23 06/03/23 Range/Units 08:59 08:47 WBC (4.8-10.8) K/ul RBC (4.20-5.40) M/uL Hgb (12.0-16.0) g/dl Hct (37.0-47.0) % MCV (80.0-100.0) fL MCH (25.0-34.0) pg MCHC (32.0-36.0) g/dL RDW Std Deviation (36.4-46.3) fL RDW Coeff of German (11.5-14.5) % Plt Count (130-400) K/uL MPV (9.4-12.4) fL Sodium (136-145) mmol/L Potassium (3.5-5.1) mmol/L Chloride (98-107) mmol/L Carbon Dioxide (21-32) mmol/L Anion Gap (3-11) BUN (6-23) mg/dl Creatinine (0.6-1.2) mg/dl Est Cr Clr Drug Dosing ml/min Est GFR ( Amer) ml/min Est GFR (Non-Af Amer) ml/min BUN/Creatinine Ratio (10-20) Glucose (70-99(Fasting)) mg/dl POC Glucose 140 H (70-99) mg/dl Calcium (8.6-10.3) mg/dl Magnesium (1.7-2.4) mg/dl Blood Type O Negative Antibody Screen NEGATIVE
[2023-06-04] MEDS ORDERED: PARoxetine HCL 20 MG TAB PO SCH (09:00)
[2023-06-04] MEDS ORDERED: FAMOTIDINE 20 MG TAB PO SCH (09:00)
[2023-06-04] MEDS ORDERED: MULTIVITAMIN TAB PO SCH (09:00)
[2023-06-04] MEDS ORDERED: lisinopril 40 MG TAB PO SCH (09:00)
[2023-06-04] MEDS ORDERED: amLODIPine BESYLATE 5 MG TAB PO SCH (09:00)
[2023-06-04] MEDS: CYCLOBENZAPRINE HCL 10 MG TAB PO PRN (12:00)
--- NOTE | 2023-06-04 12:22 | Pharmacy Report ---
Pharmacy Glycemic Short Note 2 - Date of Service June 04, 2023 - Glycemic Short BSG Results (Last 24 hours): 06/03/23 06/03/23 06/03/23 14:02 16:52 20:53 Glucose POC Glucose 100 H 135 H 137 H 06/04/23 06/04/23 06/04/23 06:20 07:41 11:32 Glucose 138 H POC Glucose 152 H 141 H OUTPATIENT ANTIDIABETIC REGIMEN: * Victoza 1.8mg SQ QAM * Metformin 1000mg BID * HbA1c 6.4% 04/14/23 (Medical Clearance 05/06/23) ASSESSMENT: * Jena is a 68 YOF admitted status post total knee arthroplasty POD#1. Pharmacy has been consulted for glycemic management while inpatient. * She received 10 units of basal insulin and 5 units of bolus insulin yesterday * Fasting BSG slightly elevated this AM, received 10 units basal insulin last evening, will continue with 10 units of Lantus at bedtime and reevaluate fasting BSG in AM if not discharged * Mealtime BSGs in goal range currently, continue Novolog at weight based stress of 2 PLAN FOR INPATIENT GLYCEMIC CONTROL: * Hold outpatient oral diabetes medications * Basal insulin * Lantus 10 units SQ HS * Bolus insulin * NovoLog per scale ACHS or Q6hrs while NPO * Goal Range: Low 110 mg/dL - High 140 mg/dL * Correction Factor: 20 mg/dL/unit * Nutritional / Prandial insulin per carb ratio of 1 unit per 7 grams CHO consumed
--- NOTE | 2023-06-04 18:01 | Electrocardiogram Report ---
Test Reason : Blood Pressure : / mmHG Vent. Rate : 087 BPM Atrial Rate : 087 BPM P-R Int : 180 ms QRS Dur : 092 ms QT Int : 368 ms P-R-T Axes : 060 050 064 degrees QTc Int : 442 ms Normal sinus rhythm Normal ECG When compared with ECG of 24-APR-2020 11:30, No significant change was found Confirmed by William Long ([id number]) on 06/04/2023 6:01:11 PM Referred By: Salbador Greenfield Confirmed By:Yury Long
[2023-06-04] MEDS ORDERED: LANTUS PER UNIT CHARGE SC SCH (21:00)
--- NOTE | 2023-06-06 10:07 | Discharge Summary ---
Date of Service June 06, 2023 Admission HPI Per Admitting Provider Jena is a 68-year-old female who presents for preop evaluation prior to upcoming right total knee arthroplasty, she states she had pain in his knee for many years now which is gradually worsened and is now affecting her daily activities including walking standing going up down stairs. She is tried oral anti-inflammatories and Tylenol without relief. She does use morphine as prescribed by her PCP. She underwent MRI evaluation which showed advanced generative changes to her knee with chronic ACL tear as well as early avascular necrosis. At this point would like to proceed with surgical invention Admission Exam Per Admitting Provider Physical Exam Constitutional: WD/WN, vitals as above no acute distress Respiratory: normal respiratory effort, lungs clear to auscultation no respiratory distress, no labored breathing and does not use accessory muscles Cardiovascular: RRR, no murmur, no edema Gastrointestinal (Abdomen): normal bowel sounds, soft, nontender, no hepatosplenomegaly Musculoskeletal: Knee: + knee abnormal to inspection (RIGHT KNEE: ), + effusion (+1 effusion), + limited ROM of knee (ROM 0/3/110), + knee ROM with crepitation, + joint line tenderness (medial joint line) and + Love's sign positive; no deformity, no skin erythema, no ecchymosis, no valgus laxity, no varus laxity, anterior drawer test negative, Catarino's sign negative and pivot shift test negative Principal Diagnosis Right knee osteoarthritis Discharge Data Allergies Allergy/AdvReac Type Severity Reaction Status Date / Time bee venom protein (honey bee) Allergy Severe THROAT Verified 06/03/23 09:13 SWELLING,FACE SWELLS adhesive Allergy Mild TRANSFER Verified 06/03/23 09:13 TAPE = TORE SKIN shark liver oil Allergy Unknown RASH Verified 06/03/23 09:13 Yeast Allergy Unknown RASH Verified 06/03/23 09:13 erythromycin base AdvReac Mild GI upset Verified 06/03/23 09:13 oxycodone AdvReac Mild lower Verified 06/03/23 09:13 blood pressure, feels weird Phenylmercuric Nitrate Allergy Unknown RASH Uncoded 06/03/23 09:13 Consultations 06/03/23 15:34 Consult Hospitalist Routine Procedures Performed Operation Date: 06/03/23 10:35 Actual Procedures p Right Total Knee Arthroplasty(Right) - Salbador Greenfield DO Ordered Studies 06/03/23 05:00 US - OR guided needle placemen Routine Hospital Course (1) Status post right knee replacement: Patient:JENA BAPTISTE Admit Date:06/03/23 MR#:[id number] Att Phy:Salbador Greenfield,Alicia Acct ID:[id number] Lisseth Phy:Myron Marcus, Date:1955 Fam Phy: Age:68 Location:3N Sex:F Room/Bed:N387-1 cc: ~ *NOTICE TO RECEIVING CONSTITUTION PARTY/AGENCY This information is strictly Confidential and protected under [place] law. [place] law prohibits you from making any further disclosure of this information unless further disclosure is expressly permitted by the written consent of the person to whom it pertains or is authorized by law. A general authorization for the release of medical or other information is not sufficient for this purpose. Hospital accepts no responsibility if the information is made available to any other person, INCLUDING THE PATIENT. Date of Service June 04, 2023 Assessment & Plan (1) Status post right knee replacement: Plan: 68 yo female stable POD #1 s/p right TKA 1. Med management 2. DVT prophylaxis- ASA, SCDs 3. PT/OT 4. D/C planning- home w/ HH Patient remaining stable per hospitalist service and agreeable to discharge. Admission and Anticipated Discharge Date Admission Date: June 03, 2023 Subjective Pt resting in bed, states moderate pain overnight, now improved Physical Exam Physical Exam: Dressing in place, hemovac and LYLA in place, toes mobile, NVI Results & Data Vital Signs (Past 12 Hours) Vital Signs Temp Pulse Resp BP Pulse Ox O2 Del Method 06/04/23 07:27 37.1 C 87 18 179/100 H 94 Room Air 06/04/23 03:00 37.2 C 78 18 146/80 H 93 Room Air 06/03/23 23:00 36.9 C 84 18 155/77 H 96 Room Air Laboratory Results 06/04/23 06/04/23 06/04/23 Range/Units 07:41 06:20 06:20 WBC 13.17 H (4.8-10.8) K/ul RBC 3.88 L (4.20-5.40) M/uL Hgb 11.7 L (12.0-16.0) g/dl Hct 33.6 L (37.0-47.0) % MCV 86.6 (80.0-100.0) fL MCH 30.2 (25.0-34.0) pg MCHC 34.8 (32.0-36.0) g/dL RDW Std Deviation 39.4 (36.4-46.3) fL RDW Coeff of German 12.5 (11.5-14.5) % Plt Count 263 (130-400) K/uL MPV 10.6 (9.4-12.4) fL Sodium 134 L (136-145) mmol/L Potassium 4.1 (3.5-5.1) mmol/L Chloride 101 (98-107) mmol/L Carbon Dioxide 25 (21-32) mmol/L Anion Gap 8 (3-11) BUN 20 (6-23) mg/dl Creatinine 1.19 (0.6-1.2) mg/dl Est Cr Clr Drug Dosing 53.0 ml/min Est GFR ( Amer) 54.3 ml/min Est GFR (Non-Af Amer) 46.9 ml/min BUN/Creatinine Ratio 16.8 (10-20) Glucose 138 H (70-99(Fasting)) mg/dl POC Glucose 152 H (70-99) mg/dl Calcium 8.4 L (8.6-10.3) mg/dl Magnesium 1.4 L (1.7-2.4) mg/dl Blood Type Antibody Screen 06/03/23 06/03/23 06/03/23 Range/Units 20:53 16:52 14:02 WBC (4.8-10.8) K/ul RBC (4.20-5.40) M/uL Hgb (12.0-16.0) g/dl Hct (37.0-47.0) % MCV (80.0-100.0) fL MCH (25.0-34.0) pg MCHC (32.0-36.0) g/dL RDW Std Deviation (36.4-46.3) fL RDW Coeff of German (11.5-14.5) % Plt Count (130-400) K/uL MPV (9.4-12.4) fL Sodium (136-145) mmol/L Potassium (3.5-5.1) mmol/L Chloride (98-107) mmol/L Carbon Dioxide (21-32) mmol/L Anion Gap (3-11) BUN (6-23) mg/dl Creatinine (0.6-1.2) mg/dl Est Cr Clr Drug Dosing ml/min Est GFR ( Amer) B ml/min Est GFR (Non-Af Amer) ml/min BUN/Creatinine Ratio (10-20) Glucose (70-99(Fasting)) mg/dl POC Glucose 137 H 135 H 100 H (70-99) mg/dl Calcium (8.6-10.3) mg/dl Magnesium (1.7-2.4) mg/dl Blood Type Antibody Screen 06/03/23 06/03/23 Range/Units 08:59 08:47 WBC (4.8-10.8) K/ul RBC (4.20-5.40) M/uL Hgb (12.0-16.0) g/dl Hct (37.0-47.0) % MCV (80.0-100.0) fL MCH (25.0-34.0) pg MCHC (32.0-36.0) g/dL RDW Std Deviation (36.4-46.3) fL RDW Coeff of German (11.5-14.5) % Plt Count (130-400) K/uL MPV (9.4-12.4) fL Sodium (136-145) mmol/L Potassium (3.5-5.1) mmol/L Chloride (98-107) mmol/L Carbon Dioxide (21-32) mmol/L Anion Gap (3-11) BUN (6-23) mg/dl Creatinine (0.6-1.2) mg/dl Est Cr Clr Drug Dosing ml/min Est GFR ( Amer) ml/min Est GFR (Non-Af Amer) ml/min BUN/Creatinine Ratio (10-20) Glucose (70-99(Fasting)) mg/dl POC Glucose 140 H (70-99) mg/dl Calcium (8.6-10.3) mg/dl Magnesium (1.7-2.4) mg/dl D Blood Type O Negative Antibody Screen NEGATIVE Signed By: <Electronically signed by Asa Daly > 06/04/23 0818 <Electronically signed by Ruben Farley M.D.> 06/04/23 1519 Created:06/04/23 0816 Total Time Total Time Spent Total Time Spent (In Minutes): 5 Discharge Plan Discharge Items Patient Disposition: Home - Home Health Services Reason For Visit: Osteoarthritis Knee Right Discharge Diagnosis: Right knee osteoarthritis Activity: Per Instructions section Weightbearing: Right weightbearing Weightbearing Comment: as tolerated with walker Non-emergency contact: Surgeon Call non-emergency contact if: you have any medication questions, your pain is not controlled, your temperature is above 101.5, your wound has increased redness and your wound has increased drainage Follow-up/Referrals: Salbador Greenfield DO [Surgeon] - (Follow up with Dr Greenfield in 2 weeks from the day of surgery. ) Myron Marcus DO [Primary Care Provider] - 06/11/23 11:30 am Diet: Carb Consistent or DM2 Addtl Attending Provider Instructions: ACTIVITY RECOMMENDATIONS: SELF CARE INSTRUCTIONS AFTER TOTAL KNEE REPLACEMENT A. You may need to continue a physical therapy program after discharge from the hospital. There are several options available to you. Your doctor will assist you in selecting the best one for you. 1. An out-patient facility 2 to 3 times a week for therapy or home therapy. 2. Continue working on all exercises taught to you in the hospital. Your goals should be to increase bending of your knee to 90 degrees and beyond and to fully straighten your knee. B. You may progress at your own pace from walking with a walker or crutches to a cane; then to no assistive devices. C. Make walking a part of your daily routine. Be up as much as comfortable with rest periods throughout the day. Rest with leg elevation is very important. Use the ice wrap frequently for the first 3-4 weeks. D. There are no restrictions on activities. You may ride in a car, shop, participate in insulation worker furnace installer and all social activities. E. Wear the long elastic stockings (DALILA hose) 20 hours a day for 2 weeks after surgery. They can be removed several times a day for laundering and for a bath. F. You may shower, no tub baths until cleared by your doctor. SPECIAL CARE INSTRUCTIONS: VERY IMPORTANT TO READ AND REVIEW A. There are a few signs you need to watch for after you are home. Call [facility] [place] if you notice any of the followin. Increased severe knee pain. Some pain is expected especially when you exercise. 2. Increased swelling in your leg or knee; pain or swelling of the calf muscle in either lower leg. 3. Any fluid drainage from the incision. 4. Shortness of breath or chest pain. B. Please call [facility] at if you have any concerns or questions about your operation or recovery. The doctor or his nurse will return your call promptly. C. You must take antibiotics before dental work, bladder, bowel or other surgery. Your doctor will provide you with a permanent care to carry describing this precaution. IMPORTANT: * REMEMBER TO TAKE ASPIRIN, 81 MG, TWICE DAILY FOR 4 WEEKS UNLESS OTHERWISE DIRECTED. THIS IS YOUR BLOOD THINNER. * CALL IF INCREASED PAIN, REDNESS, DRAINAGE OR FEVER GREATER THAT 101. * WEAR DALILA HOSE 20 HOURS PER DAY FOR 2 WEEKS. * LYLA Dressing - This is a large suction dressing covering your incision. This will help pull any excess drainage from the wound and allow your incision to heal properly. You may shower with this if you can keep the unit outside of the shower. If any bleeding or leakage is noted please call your doctor's office. This will remain on your incision for 7 days and then should be removed. This can be done yourself or by the home nursing staff if applicable. The entire unit is disposable once removed. Once removed, keep incision clean and dry. If redness or drainage is noted, please call your surgeon. . * Once your Lyla Dressing is removed, follow the wound care instructions below: DERMABOND Prineo- This is a mesh tape dressing that is covered with glue. It should remain in place until the incision is properly healed, usually 10-14 days. This dressing is designed to naturally slough off. You may trim the excess mesh tape as it peels off. Incision may be briefly wet in a shower. Dry immediately by blotting with a clean, dry towel. Do not bath or swim until instructed by your doctor. Do not scratch, rub, or pick at the dressing. Do not apply any topical ointments or lotions until dressing is completely removed and/or instructed by your doctor. There may be a small piece of suture material at one end of your incision. Do not pull or trim this. If it is bothersome or catching on clothing, you may cover it with a band-aid. FOLLOW UP VISIT: If appointment is not already scheduled: Please call [facility] [place] to make a follow-up appointment for 2 weeks after your surgery at . Pending Studies at Discharge: No Stand-Alone Forms: My [facility], Pain - Opioid Pain Management Medications and DC Order Prescriptions: New aspirin 81 mg Tablet,Delayed Release (Dr/Ec) 81 mg PO BID 30 Days Qty: 60 0RF polyethylene glycol 3350 [Miralax] 17 gram powder in packet 17 g PO DAILY PRN (Reason: constipation) Qty: 5 0RF cefadroxil 500 mg capsule 500 mg PO BID Qty: 28 1RF hydrocodone-acetaminophen 5-325 mg tablet 1 - 2 tab PO Q6 Qty: 18 0RF Rx Instructions: Max 6 tablets daily Continued cyclobenzaprine 10 mg Tablet 10 mg PO TID PRN (Reason: Muscle Spasm) metformin 500 mg Tablet 1,000 mg PO BID atorvastatin [Lipitor] 20 mg Tablet 20 mg PO HS acetaminophen [Tylenol Arthritis Pain] 650 mg Tablet Extended Release 650 mg PO Q12H PRN (Reason: Pain) amlodipine 10 mg Tablet 10 mg PO QAM paroxetine HCl [Paxil] 20 mg Tablet 20 mg PO QAM hydrochlorothiazide 12.5 mg Capsule 12.5 mg PO HS morphine 15 mg Tablet Extended Release 15 mg PO HS epinephrine [EpiPen] 0.3 mg/0.3 mL Auto-Injector 0.3 mg IM Q3H PRN (Reason: bee stings) Hair,Skin and Nails Tablet 1 tab PO HS lisinopril 40 mg Tablet 40 mg PO QAM pregabalin [Lyrica] 50 mg Capsule 50 mg PO BID Victoza 2-Peter 0.6 mg/0.1 mL (18 mg/3 mL) Pen Injector 1.8 mg SUBCUT QAM Ocuvite Adult 50 Plus 250-5-1 mg Capsule 1 cap PO HS Vitamin D3 1 tab PO HS albuterol sulfate 90 mcg/actuation Hfa Aerosol Inhaler 1 puff INHALATION QID PRN (Reason: sob) zolpidem [Ambien] 10 mg Tablet 10 mg PO HS meclizine 25 mg Tablet 25 mg PO TID PRN (Reason: Dizziness) Held meloxicam 15 mg Tablet 15 mg PO QAM Hold Instructions: Hold for 2 weeks; resume if ok with Dr. Jean Pierre Sheehan/Other Patient Handouts: Total Knee Replacement Admission Data Admit Date/Time: 06/03/23 14:05 Attending Provider: Salbador Greenfield Admit Provider: Salbador Greenfield Primary Care Provider: Myron Marcus Other Providers: Salbador García ; Fredi Chirinos ; [facility],Home Health Other Interventions: Discharge Summary Assessment (RN) Last Done: 06/04/23 14:07
== END 2023-06-04 14:39 | disposition home health service (06) ==
LOC: ASU 08:26 → 3N 08:26